=== PATIENT | female | born 1960 | race Caucasian/White ===

== ENCOUNTER 2017-05-08 18:29 | Emergency (ER) | payer OTHER, MEDICAID ==
[2017-05-08 18:33] VITALS: BP 91/72; BMI 30.4
[2017-05-08] MEDS ORDERED: ZOFRAN INJ 4 MG VIAL ONE (19:44)
[2017-05-08] MEDS ORDERED: LR 1000 ML IV 1,000 ML IV ONE ×2 (19:44→19:45)
--- NOTE | 2017-05-08 19:44 | DR.GENAD ---
HPI - Complaint/Symptoms Chief Complaint:: "throwing up three days and my stomach is hurting." - Source History Provided: Patient - Mode of Arrival Mode of Arrival: Ambulatory - Timing Onset of Chief Complaint: 05/05/17 PMH - PMH Past Medical History: Yes Past Medical History: Asthma, Hypertension Past Surgical History: Yes Surgical History: CLAIMS ADJUSTER Surgery - Family History History of Family Medical Conditions: Yes Family Medical History: Diabetes Mellitus, Cancer, Coronary Artery Disease, Hypertension - Social History Does patient currently use any type of tobacco product: No Have you used tobacco products in the last 12 months: No Type of Tobacco Use: None Does any household member use tobacco: No Alcohol Use: None Do you use any recreational Drugs:: No Lives With: Family Lives Where: Home - infectious screening In the last 2 months have you had wt loss of >10#?: NO Have you had fever, night sweats or hemotysis?: No Have you traveled outside the country in the last 6 months?: No Isolation: Standard PE - Vital Signs Vitals: Temperature 98 F Pulse Rate 100 Respiratory Rate 18 Blood Pressure [Right Arm] 134/77 Blood Pressure 91/72 O2 Sat by Pulse Oximetry 98 ROR - Labs Reviewed Result Diagrams: 05/08/17 19:51 05/08/17 19:51 Laboratory: WBC 14.8 X10^3/uL (3.6-10.0) H 05/08/17 19:51 RBC 4.48 X10^6/uL (3.5-5.4) 05/08/17 19:51 Hgb 13.9 g/dL (12.0-16.0) 05/08/17 19:51 Hct 39.4 % (36.0-47.0) 05/08/17 19:51 MCV 88.0 fL (80.0-100.0) 05/08/17 19:51 MCH 31.0 pg (27.0-34.0) 05/08/17 19:51 MCHC 35.2 g/dL (33.0-35.0) H 05/08/17 19:51 RDW 13.1 % (11.6-16.5) 05/08/17 19:51 Plt Count 232 X10^3/uL (150.0-450.0) 05/08/17 19:51 Plt Count Comment Adequate (ADEQUATE) 05/08/17 19:51 MPV 6.8 fL (7.4-11.0) L 05/08/17 19:51 Neut % 84.1 % (42.0-75.0) H 05/08/17 19:51 Lymph % 4.2 % (21.0-51.0) L 05/08/17 19:51 [place] % 11.4 % (0.0-13.0) 05/08/17 19:51 Eos % 0.1 % (0.9-2.9) L 05/08/17 19:51 Baso % 0.2 % (0.2-1.0) 05/08/17 19:51 Neut # 12.4 x10^3/uL (2.2-4.8) H 05/08/17 19:51 Lymph # 0.6 X10^3/uL (1.3-2.9) L 05/08/17 19:51 [place] # 1.7 x10^3/uL (0.3-0.8) H 05/08/17 19:51 Eos # 0.0 x10^3/uL (0.0-0.2) 05/08/17 19:51 Baso # 0.0 X10^3/uL (0.0-0.1) 05/08/17 19:51 Absolute Nucleated RBC 0.0 /100WBC 05/08/17 19:51 Total Counted 100 05/08/17 19:51 Neutrophils % (Manual) 84 % (39-76) H 05/08/17 19:51 Band Neutrophils % 3 % (0-10) 05/08/17 19:51 Lymphocytes % (Manual) 7 % (13-43) L 05/08/17 19:51 Monocytes % (Manual) 6 % (4-9) 05/08/17 19:51 Plt Morphology Comment Normal (NORMAL) 05/08/17 19:51 RBC Morphology Normal (NORMAL) 05/08/17 19:51 Sodium 135 mmol/L (136-145) L 05/08/17 19:51 Corrected Sodium 137 mmol/L (136-145) 05/08/17 19:51 Potassium 3.3 mmol/L (3.5-5.1) L 05/08/17 19:51 Chloride 100 mmol/L (98-107) 05/08/17 19:51 Carbon Dioxide 24.9 mmol/L (21-32) 05/08/17 19:51 BUN 9 mg/dL (7-18) 05/08/17 19:51 Creatinine 1.11 mg/dL (0.55-1.02) H 05/08/17 19:51 Est GFR (MDRD) Af Amer > 60 (>60) 05/08/17 19:51 Est GFR (MDRD) Non-Af 54 (>60) L 05/08/17 19:51 Glucose 168 mg/dL (65-99) H 05/08/17 19:51 Calcium 9.4 mg/dL (8.5-10.1) 05/08/17 19:51 Corrected Calcium 10.2 mg/dL (8.5-10.1) H 05/08/17 19:51 Total Bilirubin 1.20 mg/dL (0.2-1.0) H 05/08/17 19:51 AST 16 Units/L (15-37) 05/08/17 19:51 ALT 12 Units/L (12-78) 05/08/17 19:51 Alkaline Phosphatase 82 Units/L (46-116) 05/08/17 19:51 C-Reactive Protein 102.80 mg/L (0-3.0) H 05/08/17 19:51 Total Protein 8.0 g/dL (6.4-8.2) 05/08/17 19:51 Albumin 3.0 g/dL (3.4-5.0) L 05/08/17 19:51 Globulin 5.0 g/dL (2.5-4.5) H 05/08/17 19:51 Albumin/Globulin Ratio 0.6 Ratio (1.1-2.1) L 05/08/17 19:51 Specimen Type Clean catch urine 05/08/17 20:02 Urine Color Yellow (YELLOW) 05/08/17 20:02 Urine Appearance Cloudy (CLEAR) 05/08/17 20:02 Urine pH 8.0 (5.0 - 8.0) 05/08/17 20:02 Ur Specific [place] 1.010 (1.000-1.030) 05/08/17 20:02 Urine Protein 4+ (NEGATIVE) 05/08/17 20:02 Urine Glucose (UA) 1+ (NEGATIVE) 05/08/17 20:02 Urine Ketones 1+ (NEGATIVE) 05/08/17 20:02 Urine Occult Blood 3+ (NEGATIVE) 05/08/17 20:02 Urine Nitrite Positive (NEGATIVE) 05/08/17 20:02 Urine Bilirubin 1+ (NEGATIVE) 05/08/17 20:02 Urine Urobilinogen 3+ (NORMAL) 05/08/17 20:02 Ur Leukocyte Esterase 3+ (NEGATIVE) 05/08/17 20:02 Urine RBC 3-5 /HPF (NEGATIVE) 05/08/17 20:02 Urine WBC 20-25 /HPF (NEGATIVE) 05/08/17 20:02 Ur Squamous Epith Cells Moderate /HPF (NEGATIVE) 05/08/17 20:02 Urine Bacteria 3+ /HPF (NEGATIVE) 05/08/17 20:02 Ur Culture Indicated? Yes/culture set up 05/08/17 20:02 H. pylori IgG Antibody Positive (NEGATIVE) A 05/08/17 19:51 - Diagnosis Discharge Problem: UTI (urinary tract infection) Qualifiers: Urinary tract infection type: acute cystitis Hematuria presence: with hematuria Qualified Code(s): N30.01 - Acute cystitis with hematuria Gastritis Qualifiers: Gastritis type: other gastritis Chronicity: chronic Gastritis bleeding: without bleeding Qualified Code(s): K29.50 - Unspecified chronic gastritis without bleeding - Discharge Plan Condition: Stable Prescriptions: Amoxicillin [AMOXIL CAP 500 MG *] 500 mg PO BID 14 Days #56 cap Clarithromycin [CLARITHROMYCIN 500 MG TAB *] 500 mg PO Q12H #28 tab Lansoprazole [Lansoprazole 30 mg] 30 mg PO DAILY #30 cap - Follow ups/Referrals Follow ups/Referrals: NFD,None [Primary Care Provider] - 3 days - Instructions
[2017-05-08] MEDS ORDERED: ZOFRAN INJ 4 MG VIAL IVP ONE (19:45)
[2017-05-08 20:05] LABS: BASOPHILS % (AUTO) 0.2 % (0.2-1.0); EOSINOPHILS % (AUTO) 0.1 % (0.9-2.9); HEMATOCRIT 39.4 % (36.0-47.0); HEMOGLOBIN 13.9 g/dL (12.0-16.0); LYMPHOCYTES # (AUTO) 0.6 X10^3/uL (1.3-2.9); LYMPHOCYTES % (AUTO) 4.2 % (21.0-51.0); MEAN CORPUSCULAR HGB CONC 35.2 g/dL (33.0-35.0); MEAN PLATELET VOLUME 6.8 fL (7.4-11.0); MONOCYTES # (AUTO) 1.7 x10^3/uL (0.3-0.8); MONOCYTES % (AUTO) 11.4 % (0.0-13.0); NEUTROPHILS # (AUTO) 12.4 x10^3/uL (2.2-4.8); NEUTROPHILS % (AUTO) 84.1 % (42.0-75.0); PLATELET COUNT 232 X10^3/uL (150.0-450.0); RED BLOOD COUNT 4.48 X10^6/uL (3.5-5.4); RED CELL DISTRIBUTION WIDTH 13.1 % (11.6-16.5); WHITE BLOOD COUNT 14.8 X10^3/uL (3.6-10.0)
[2017-05-08 20:09] LABS: BILIRUBIN,URINE 1+ (NEGATIVE); BLOOD/HEMOGLOBIN,URINE 3+ (NEGATIVE); GLUCOSE, URINE 1+ (NEGATIVE); KETONES,URINE 1+ (NEGATIVE); LEUKOCYTE ESTERASE ,URINE 3+ (NEGATIVE); NITRITES,URINE POSITIVE (NEGATIVE); PROTEIN,URINE 4+ (NEGATIVE); UROBILINOGEN,URINE 3+ (NORMAL)
[2017-05-08 20:11] LABS: ALANINE AMINOTRANSFERASE 12 Units/L (12-78); ALKALINE PHOSPHATASE 82 Units/L (46-116); ASPARTATE AMINO TRANSFERASE 16 Units/L (15-37); BLOOD UREA NITROGEN 9 mg/dL (7-18); CALCIUM 9.4 mg/dL (8.5-10.1); CARBON DIOXIDE 24.9 mmol/L (21-32); CHLORIDE 100 mmol/L (98-107); COR CA(FOR HYPOALB) 10.2 mg/dL (8.5-10.1); COR NA(FOR HYPERGLY) 137 mmol/L (136-145); CREATININE 1.11 mg/dL (0.55-1.02); SODIUM 135 mmol/L (136-145); eGFR BLACK RACES > 60 (>60); eGFR NON BLACK RACES 54 (>60)
[2017-05-08 20:17] LABS: APPEARANCE,URINE CLOUDY (CLEAR); COLOR,URINE YELLOW (YELLOW)
[2017-05-08 20:18] LABS: BACTERIA,URINE 3+ /HPF (NEGATIVE); SQUAMOUS EPITHELIAL CELL,UR MODERATE /HPF (NEGATIVE)
[2017-05-08 20:27] LABS: BAND NEUTROPHILS % 3 % (0-10); PLATELET MORPHOLOGY COMMENT NORMAL (NORMAL)
[2017-05-08] MEDS ORDERED: K-DUR TAB 20 MEQ PO ONE ×2 (20:27→20:32)
[2017-05-08] MEDS ORDERED: AMPICILLIN IV ONE (21:35)
[2017-05-08] MEDS ORDERED: NS IV ONE (21:35)
[2017-05-08] MEDS ORDERED: AMPICILLIN VIAL 1 GM ONE (21:51)
[2017-05-08] MEDS ORDERED: NS 50 ML IV 50 ML IV ONE (21:51)
== END 2017-05-08 22:25 | disposition home or self-care (01) ==
LOC: ER 18:55
DX: N30.01 Acute cystitis with hematuria (principal); K29.50 Unspecified chronic gastritis without bleeding; B96.81 Helicobacter pylori [H. pylori] as the cause of diseases classified elsewhere; B96.1 Klebsiella pneumoniae [K. pneumoniae] as the cause of diseases classified elsewhere
CPT/HCPCS: 36415; 80053; 81001; 85025; 86140; 86677; 87086; 87088; 87186; 96365; 96374; 96375; 99283; A4222; J0290; J2405; J7120

== ENCOUNTER → 2017-06-26 | Outpatient (CLI) | payer OTHER, MEDICAID ==
[2017-06-26 11:53] LABS: BASOPHILS % (AUTO) 0.7 % (0.2-1.0); EOSINOPHILS # (AUTO) 0.1 x10^3/uL (0.0-0.2); EOSINOPHILS % (AUTO) 1.2 % (0.9-2.9); HEMATOCRIT 44.3 % (36.0-47.0); HEMOGLOBIN 15.3 g/dL (12.0-16.0); LYMPHOCYTES % (AUTO) 30.7 % (21.0-51.0); MEAN CORPUSCULAR HEMOGLOBIN 29.9 pg (27.0-34.0); MEAN CORPUSCULAR HGB CONC 34.5 g/dL (33.0-35.0); MEAN CORPUSCULAR VOLUME 86.7 fL (80.0-100.0); MEAN PLATELET VOLUME 7.2 fL (7.4-11.0); MONOCYTES # (AUTO) 0.4 x10^3/uL (0.3-0.8); MONOCYTES % (AUTO) 6.3 % (0.0-13.0); NEUTROPHILS % (AUTO) 61.1 % (42.0-75.0); PLATELET COUNT 262 X10^3/uL (150.0-450.0); RED BLOOD COUNT 5.11 X10^6/uL (3.5-5.4); WHITE BLOOD COUNT 6.5 X10^3/uL (3.6-10.0)
[2017-06-26 12:24] LABS: ALANINE AMINOTRANSFERASE 18 Units/L (12-78); ALBUMIN 3.6 g/dL (3.4-5.0); ALKALINE PHOSPHATASE 106 Units/L (46-116); ASPARTATE AMINO TRANSFERASE 13 Units/L (15-37); BLOOD UREA NITROGEN 14 mg/dL (7-18); CALCIUM 9.7 mg/dL (8.5-10.1); CARBON DIOXIDE 28.1 mmol/L (21-32); CHLORIDE 104 mmol/L (98-107); CREATININE 0.73 mg/dL (0.55-1.02); SODIUM 141 mmol/L (136-145); TOTAL PROTEIN 8.4 g/dL (6.4-8.2); TSH (3RD GENERATION) 1.835 uIU/mL (0.358-3.74); eGFR BLACK RACES > 60 (>60); eGFR NON BLACK RACES > 60 (>60)
== END ==
LOC: LAB 11:28
PROVIDERS: ATTEND Nurse Practitioner Family
DX: F25.0 Schizoaffective disorder, bipolar type (principal); Z79.899 Other long term (current) drug therapy
CPT/HCPCS: 36415; 80053; 84443; 85025

== ENCOUNTER 2017-09-05 14:25 | Inpatient (IN) | payer OTHER, MEDICAID ==
[~2017-09-05 14:25] MED LIST: DIPRIVAN VIAL ONE; LTA KIT LIDOCAINE 4% ONE; NEOSTIGMINE INJ ONE; NORCURON INJ 10 MG VIAL ONE; QUELICIN (OR ANECTINE) ONE; ROBINUL ONE; SUPRANE IN ONE; VERSED ONE; XYLOCAINE 2 % (PLAIN) ONE; ZOFRAN INJ 4 MG VIAL ONE
--- NOTE | 2017-09-05 15:27 | DR.GENAD ---
HPI - PCP Primary Care Physician: Allen - HPI Comment HPI Comment: PAIN UPPER ABDOMEN RADIATING TO THE BACK. NO FEVER OR DYSURIA. - Complaint/Symptoms Chief Complaint Doctors Comments: ABDOMINAL PAIN TIMES 2 DAYS. PATIENT CONCERN SHE MAY BE CONSTIPATED. Chief Complaint:: "My stomach has been hurting for about 2 days now. I feel like it may be constipation. I had a bowl movement today but it was really small." - Nurses notes reviewed Nurses Notes Review: Yes - Source History Provided: Patient - Mode of Arrival Mode of Arrival: Ambulatory - Timing Onset of Chief Complaint: 09/03/17 Came on: Suddenly - Duration Duration: Constant Duration: Days - Severity Severity: Moderate PMH - PMH Past Medical History: Yes Past Medical History: Asthma, Hypertension Past Surgical History: Yes Surgical History: CHILDHOOD TEACHER Surgery - Family History History of Family Medical Conditions: Yes Family Medical History: Diabetes Mellitus, Cancer, Coronary Artery Disease, Hypertension - Social History Does patient currently use any type of tobacco product: No Have you used tobacco products in the last 12 months: No Type of Tobacco Use: None Does any household member use tobacco: No Do you use any recreational Drugs:: No Lives With: Family Lives Where: Home - infectious screening In the last 2 months have you had wt loss of >10#?: NO Have you had fever, night sweats or hemotysis?: No Have you traveled outside the country in the last 6 months?: No Isolation: Standard ROS - Review of Systems Constitutional: Weakness, Fatigue. negative: Chills, Fever Eyes: negative: Eye Pain, Discharge ENTM: negative: Ear Pain, Nose Discharge, Nose Congestion, Throat Pain Respiratoy: Short of Breath. negative: Productive Cough, Non-Productive Cough, Wheezing, Hemoptysis Cardiovascular: No Symptoms Reported Gastrointestinal/Abdominal: Abdominal Pain, Constipation, Nausea, Vomiting. negative: Diarrhea Genitourinary: Pain. negative: Dysuria, Frequency, Hematuria Neurological: Weakness, Dizziness. negative: Headache Musculoskeletal: Muscle Pain Integumentary: [place] Hematologic/Lymphatic: No Symptoms Reported Endocrine: No Symptoms Reported All Other Systems: Reviewed and Negative PE - Vital Signs Vitals: Temperature 99.7 F Pulse Rate 115 Respiratory Rate 18 Blood Pressure [Right Arm] 134/77 Blood Pressure 137/91 O2 Sat by Pulse Oximetry 96 - General Limitations: No Limitations General Appearance: Alert - Head Head Exam: Normal Inspection - Eyes Eye exam: Other (JAUNDICE) - ENT ENT Exam: Normal External Ear Exam External Ear Exam: Normal External Inspection TM/Canal Exam: Bilateral Normal Nose Exam: Normal Nose Exam Mouth Exam: Normal Inspection Throat Exam: Normal Inspection - Neck Neck Exam: Normal Inspection - Chest Chest Inspection: Symmetric Chest Wall Rise - Respiratory Respiratory Exam: Normal Lung Sounds Bilat Respiratory Exam: Bilateral Clear to Auscultation - Cardiovascular Cardiovascular Exam: Regular Rate, Normal Rhythm, Normal Heart Sounds - Abdominal Exam Abdominal Exam: Normal Bowel Sounds, Soft, Tenderness Abdominal Tenderness: RUQ, LUQ, Epigastrium, Moderate - Extremities Extremities Exam: Normal Inspection - Back Back Exam: Normal Inspection - Neurologic Neurological Exam: Alert, Oriented X3 - Psychiatric Psychiatric Exam: Normal Affect, Normal Mood - Skin Skin Exam: Normal Color MDM - Additional Information Additional Information Obtained From: Family - Differential Diagnosis Differential Diagnosis: ABDOMINAL PAIN, BOWEL OBSTRUCTION, CHOLECYSTITIS, PACREATITIS, JAUNDICE Course - Treatment Treatment: SEE ORDERS. - Education/Counseling Education/Counseling: Patient, Family, Education Educated On: Diagnosis, Needs for Follow Up ROR - Labs Reviewed Laboratory Results Reviewed?: Yes Result Diagrams: 09/06/17 06:20 09/06/17 06:20 Laboratory: WBC 9.2 X10^3/uL (3.6-10.0) 09/05/17 15:38 RBC 5.37 X10^6/uL (3.5-5.4) 09/05/17 15:38 Hgb 16.1 g/dL (12.0-16.0) H 09/05/17 15:38 Hct 46.1 % (36.0-47.0) 09/05/17 15:38 MCV 85.8 fL (80.0-100.0) 09/05/17 15:38 MCH 30.0 pg (27.0-34.0) 09/05/17 15:38 MCHC 35.0 g/dL (33.0-35.0) 09/05/17 15:38 RDW 14.8 % (11.6-16.5) 09/05/17 15:38 Plt Count 216 X10^3/uL (150.0-450.0) 09/05/17 15:38 MPV 7.6 fL (7.4-11.0) 09/05/17 15:38 Neut % 89.3 % (42.0-75.0) H 09/05/17 15:38 Lymph % 6.1 % (21.0-51.0) L 09/05/17 15:38 [place] % 4.1 % (0.0-13.0) 09/05/17 15:38 Eos % 0.2 % (0.9-2.9) L 09/05/17 15:38 Baso % 0.3 % (0.2-1.0) 09/05/17 15:38 Neut # 8.2 x10^3/uL (2.2-4.8) H 09/05/17 15:38 Lymph # 0.6 X10^3/uL (1.3-2.9) L 09/05/17 15:38 [place] # 0.4 x10^3/uL (0.3-0.8) 09/05/17 15:38 Eos # 0.0 x10^3/uL (0.0-0.2) 09/05/17 15:38 Baso # 0.0 X10^3/uL (0.0-0.1) 09/05/17 15:38 Absolute Nucleated RBC 0.0 /100WBC 09/05/17 15:38 Sodium 135 mmol/L (136-145) L 09/05/17 15:38 Corrected Sodium 136 mmol/L (136-145) 09/05/17 15:38 Potassium 4.0 mmol/L (3.5-5.1) 09/05/17 15:38 Chloride 100 mmol/L (98-107) 09/05/17 15:38 Carbon Dioxide 24.2 mmol/L (21-32) 09/05/17 15:38 BUN 13 mg/dL (7-18) 09/05/17 15:38 Creatinine 0.89 mg/dL (0.55-1.02) 09/05/17 15:38 Est GFR (MDRD) Af Amer > 60 (>60) 09/05/17 15:38 Est GFR (MDRD) Non-Af > 60 (>60) 09/05/17 15:38 Glucose 127 mg/dL (65-99) H 09/05/17 15:38 Calcium 10.2 mg/dL (8.5-10.1) H 09/05/17 15:38 Corrected Calcium TNP 09/05/17 15:38 Total Bilirubin 6.80 mg/dL (0.2-1.0) H 09/05/17 15:38 AST 214 Units/L (15-37) H 09/05/17 15:38 ALT 297 Units/L (12-78) H 09/05/17 15:38 Alkaline Phosphatase 310 Units/L (46-116) H 09/05/17 15:38 Total Protein 8.5 g/dL (6.4-8.2) H 09/05/17 15:38 Albumin 3.6 g/dL (3.4-5.0) 09/05/17 15:38 Globulin 4.9 g/dL (2.5-4.5) H 09/05/17 15:38 Albumin/Globulin Ratio 0.7 Ratio (1.1-2.1) L 09/05/17 15:38 Amylase 2191 Units/L (25-115) H 09/05/17 15:38 Lipase 80754 Units/L (73-393) H 09/05/17 15:38 Specimen Type Clean catch urine 09/05/17 16:19 Urine Color [place] (YELLOW) 09/05/17 16:19 Urine Appearance Slightly hazy (CLEAR) 09/05/17 16:19 Urine pH Cancelled 09/05/17 15:53 Ur Specific [place] Cancelled 09/05/17 15:53 Urine Protein Cancelled 09/05/17 15:53 Urine Glucose (UA) Cancelled 09/05/17 15:53 Urine Ketones Cancelled 09/05/17 15:53 Urine Occult Blood Cancelled 09/05/17 15:53 Urine Nitrite Cancelled 09/05/17 15:53 Urine Bilirubin Cancelled 09/05/17 15:53 Urine Urobilinogen Cancelled 09/05/17 15:53 Ur Leukocyte Esterase Cancelled 09/05/17 15:53 Urine RBC 5-10 /HPF (NONE SEEN) 09/05/17 16:19 Urine WBC 0-2 /HPF (NONE SEEN) 09/05/17 16:19 Ur Squamous Epith Cells Moderate /HPF (NEGATIVE) 09/05/17 16:19 Ur Transition Epith Cell Cancelled 09/05/17 15:53 Ur Renal Epithelial Cell Cancelled 09/05/17 15:53 Calcium Oxalate Crystal Cancelled 09/05/17 15:53 Cystine Crystals Cancelled 09/05/17 15:53 Uric Acid Crystals Cancelled 09/05/17 15:53 Triple Phos Crystals Cancelled 09/05/17 15:53 Tyrosine Crystals Cancelled 09/05/17 15:53 Other Crystals Cancelled 09/05/17 15:53 Amorphous Sediment Cancelled 09/05/17 15:53 Urine Bacteria 3+ /HPF (Negative) 09/05/17 16:19 Hyaline Casts Cancelled 09/05/17 15:53 Granular Casts Cancelled 09/05/17 15:53 Fine Granular Casts Cancelled 09/05/17 15:53 Coarse Granular Casts Cancelled 09/05/17 15:53 WBC Casts Cancelled 09/05/17 15:53 Other Casts Cancelled 09/05/17 15:53 Urine Mucus Cancelled 09/05/17 15:53 Urine Trichomonas Cancelled 09/05/17 15:53 Urine Yeast Cancelled 09/05/17 15:53 Urine Sperm Cancelled 09/05/17 15:53 Ur Culture Indicated? Yes/culture set up 09/05/17 16:19 Micro UA Comment Unable to perform (-) 09/05/17 16:19 H. pylori IgG Antibody Positive (NEGATIVE) A 09/05/17 15:38 - XRAY XRAY Interpreted by: Radiologist XRAY Findings: REPORT DISCUSS WITH PATIENT. - Diagnosis Discharge Problem: Hyponatremia, Hypokalemia Abdominal pain Qualifiers: Abdominal location: upper abdomen, unspecified Qualified Code(s): R10.10 - Upper abdominal pain, unspecified Acute pancreatitis Qualifiers: Pancreatitis type: unspecified pancreatitis type Acute pancreatitis complication: unspecified Qualified Code(s): K85.90 - Acute pancreatitis without necrosis or infection, unspecified - Discharge Plan Disposition: ADMITTED INPATIENT Condition: Stable - Follow ups/Referrals - Instructions
[2017-09-05 15:51] LABS: BASOPHILS % (AUTO) 0.3 % (0.2-1.0); EOSINOPHILS % (AUTO) 0.2 % (0.9-2.9); HEMATOCRIT 46.1 % (36.0-47.0); HEMOGLOBIN 16.1 g/dL (12.0-16.0); LYMPHOCYTES # (AUTO) 0.6 X10^3/uL (1.3-2.9); LYMPHOCYTES % (AUTO) 6.1 % (21.0-51.0); MEAN CORPUSCULAR VOLUME 85.8 fL (80.0-100.0); MEAN PLATELET VOLUME 7.6 fL (7.4-11.0); MONOCYTES # (AUTO) 0.4 x10^3/uL (0.3-0.8); MONOCYTES % (AUTO) 4.1 % (0.0-13.0); NEUTROPHILS # (AUTO) 8.2 x10^3/uL (2.2-4.8); NEUTROPHILS % (AUTO) 89.3 % (42.0-75.0); PLATELET COUNT 216 X10^3/uL (150.0-450.0); RED BLOOD COUNT 5.37 X10^6/uL (3.5-5.4); RED CELL DISTRIBUTION WIDTH 14.8 % (11.6-16.5); WHITE BLOOD COUNT 9.2 X10^3/uL (3.6-10.0)
[2017-09-05 15:59] LABS: ALANINE AMINOTRANSFERASE 297 Units/L (12-78); ALBUMIN 3.6 g/dL (3.4-5.0); ALKALINE PHOSPHATASE 310 Units/L (46-116); ASPARTATE AMINO TRANSFERASE 214 Units/L (15-37); BLOOD UREA NITROGEN 13 mg/dL (7-18); CALCIUM 10.2 mg/dL (8.5-10.1); CARBON DIOXIDE 24.2 mmol/L (21-32); CHLORIDE 100 mmol/L (98-107); COR NA(FOR HYPERGLY) 136 mmol/L (136-145); CREATININE 0.89 mg/dL (0.55-1.02); SODIUM 135 mmol/L (136-145); TOTAL PROTEIN 8.5 g/dL (6.4-8.2); eGFR BLACK RACES > 60 (>60); eGFR NON BLACK RACES > 60 (>60)
--- NOTE | 2017-09-05 16:21 | RAD ---
HISTORY: Abdominal pain Study: Acute abdominal series Comparison: None Technique: A single view of the chest and two views of the abdomen are submitted for interpretation. Findings: A single view of the chest demonstrates the cardiac silhouette within normal limits in size. Elevatio n of the right hemidiaphragm is noted. Otherwise no evidence of focal consolidation is appreciated. Two views of the abdomen demonstrate a nonspecific bowel gas pattern. Scattered gas and a large amoun t of stool are seen within the colon. The renal shadows are partially obscured by overlying bowel con tent. Stool and gas are seen to the level of the rectum. IMPRESSION: No evidence of acute cardiopulmonary disease is appreciated. Overall nonspecific bowel gas pattern with findings suggesting constipation. Correlate clinically. Reported By:
[2017-09-05 16:23] LABS: AMYLASE 2191 Units/L (25-115)
[2017-09-05 16:24] LABS: LIPASE 16700 Units/L (73-393)
[2017-09-05 16:30] LABS: APPEARANCE,URINE SLIGHTLY HAZY (CLEAR); BACTERIA,URINE 3+ /HPF (Negative); COLOR,URINE ORANGE (YELLOW); SQUAMOUS EPITHELIAL CELL,UR MODERATE /HPF (NEGATIVE)
[2017-09-05] MEDS ORDERED: NS 1000 ML 1,000 ML ONE (16:34)
[2017-09-05] MEDS ORDERED: NS 1000 ML 1,000 ML IV SCH (17:00)
--- NOTE | 2017-09-05 17:29 | CT ---
HISTORY: Right-sided abdominal pain. Study: CT abdomen and pelvis without contrast Comparison: CT abdomen/pelvis dated August 13, 2012. Technique: Multiple axial images of the abdomen and pelvis were obtained from the lung bases to the pubic symphy sis without the administration of IV contrast. Dose reduction techniques including Automated Exposur e Control (AEC) and adjustment of mA and kV were utilized. Findings: Limited study secondary to lack of IV and oral contrast. The visualized portions of the lung bases are unremarkable. 1.2 cm right adrenal gland nodule with in ternal Hounsfield units of 6 appears unchanged. This is consistent with a benign adenoma. The liver, spleen, pancreas, kidneys, and left adrenal gland are unremarkable in their CT appearance. The gallbl adder is unremarkable in its CT appearance. No significant mesenteric lymphadenopathy or stranding c an be observed. No free fluid or free air is seen within the abdomen. Limited evaluation of the lar ge and small bowel secondary to collapse and lack of oral contrast. The large and small bowel are oth erwise unremarkable. The appendix appears normal. The uterus and ovaries appear normal for age. The u rinary bladder is grossly unremarkable. Multilevel degenerative changes of the spine. No aggressive o sseous lesions. IMPRESSION: No CT evidence of acute abdominal/pelvic pathology. Reported By:
[2017-09-05] MEDS ORDERED: FLUVIRIN IM ONE (18:16)
[2017-09-05] MEDS: NS 1000 ML 1,000 ML IV SCH (18:24)
[2017-09-05] MEDS ORDERED: BUTT CREAM (COMPOUND) TOP PRN (18:27)
[2017-09-05] MEDS: MORPHINE SULFATE INJ 2 MG INJ IVP PRN (19:36)
[2017-09-05] MEDS: ZOFRAN INJ 4 MG VIAL IVP PRN (19:38)
[2017-09-06] MEDS: NS 1000 ML 1,000 ML IV SCH ×5 (02:40→21:38)
[2017-09-06 06:34] LABS: BASOPHILS % (AUTO) 0.4 % (0.2-1.0); EOSINOPHILS % (AUTO) 0.5 % (0.9-2.9); HEMATOCRIT 39.5 % (36.0-47.0); HEMOGLOBIN 13.7 g/dL (12.0-16.0); LYMPHOCYTES # (AUTO) 0.6 X10^3/uL (1.3-2.9); LYMPHOCYTES % (AUTO) 11.5 % (21.0-51.0); MEAN CORPUSCULAR HEMOGLOBIN 30.1 pg (27.0-34.0); MEAN CORPUSCULAR HGB CONC 34.7 g/dL (33.0-35.0); MEAN CORPUSCULAR VOLUME 86.6 fL (80.0-100.0); MEAN PLATELET VOLUME 7.6 fL (7.4-11.0); MONOCYTES # (AUTO) 0.4 x10^3/uL (0.3-0.8); MONOCYTES % (AUTO) 6.4 % (0.0-13.0); NEUTROPHILS # (AUTO) 4.5 x10^3/uL (2.2-4.8); NEUTROPHILS % (AUTO) 81.2 % (42.0-75.0); PLATELET COUNT 166 X10^3/uL (150.0-450.0); RED BLOOD COUNT 4.56 X10^6/uL (3.5-5.4); RED CELL DISTRIBUTION WIDTH 15.3 % (11.6-16.5); WHITE BLOOD COUNT 5.5 X10^3/uL (3.6-10.0)
[2017-09-06 06:57] LABS: ALANINE AMINOTRANSFERASE 236 Units/L (12-78); ALBUMIN 2.9 g/dL (3.4-5.0); ALKALINE PHOSPHATASE 294 Units/L (46-116); ASPARTATE AMINO TRANSFERASE 150 Units/L (15-37); BLOOD UREA NITROGEN 15 mg/dL (7-18); CALCIUM 9.4 mg/dL (8.5-10.1); CARBON DIOXIDE 22.6 mmol/L (21-32); CHLORIDE 105 mmol/L (98-107); COR CA(FOR HYPOALB) 10.3 mg/dL (8.5-10.1); COR NA(FOR HYPERGLY) 138 mmol/L (136-145); CREATININE 0.67 mg/dL (0.55-1.02); SODIUM 138 mmol/L (136-145); TOTAL PROTEIN 7.2 g/dL (6.4-8.2); eGFR BLACK RACES > 60 (>60); eGFR NON BLACK RACES > 60 (>60)
[2017-09-06 07:19] LABS: AMYLASE 1250 Units/L (25-115)
[2017-09-06 07:20] LABS: LIPASE 6354 Units/L (73-393)
--- NOTE | 2017-09-06 08:13 | PCM.PROG ---
Progress Note - Progress Note for Day of Date: 09/06/17 - Subjective Subjective: still having upper abdominal pain with mild nausea , no vomiting . amylase ,lipase and bilirubin are still high . abdominal CT normal. - Past Medical Family Social History Past Med/Fam/Surg Hx: No changes since H&P Allergies: Allergies aspirin Allergy (Verified 05/08/17 19:17) - Review of Systems ROS: No change since H&P - Vital Signs and I&O's Vital Signs: Temperature 97.7 F Pulse Rate [Left Brachial] 85 Pulse Rate [Left] 100 Pulse Rate 115 Respiratory Rate 18 Blood Pressure [Left Arm] 120/71 Blood Pressure [Right Arm] 134/77 Blood Pressure 137/91 O2 Sat by Pulse Oximetry 97 Intake and Output: Intake & Output 09/03/17 09/04/17 09/05/17 09/06/17 11:59 11:59 11:59 11:59 Intake Total 1300 Balance 1300 - Physical Exam Oriented: Normal Eyes: Other (jundice ) Nose: Normal Throat: Normal Respiratory: Normal Cardiovascular: Normal Auscultation: Bowel Sounds: Decreased Tenderness: RUQ, Epigastric Skin: Normal Musculoskeletal: Normal Psychiatric: Normal Speech Pattern: Clear, Appropriate - Laboratory and Diagnostics Result Diagrams: 09/06/17 06:20 09/06/17 06:20 Labs: Laboratory WBC 5.5 X10^3/uL (3.6-10.0) 09/06/17 06:20 RBC 4.56 X10^6/uL (3.5-5.4) 09/06/17 06:20 Hgb 13.7 g/dL (12.0-16.0) D 09/06/17 06:20 Hct 39.5 % (36.0-47.0) 09/06/17 06:20 MCV 86.6 fL (80.0-100.0) 09/06/17 06:20 MCH 30.1 pg (27.0-34.0) 09/06/17 06:20 MCHC 34.7 g/dL (33.0-35.0) 09/06/17 06:20 RDW 15.3 % (11.6-16.5) 09/06/17 06:20 Plt Count 166 X10^3/uL (150.0-450.0) 09/06/17 06:20 MPV 7.6 fL (7.4-11.0) 09/06/17 06:20 Neut % 81.2 % (42.0-75.0) H 09/06/17 06:20 Lymph % 11.5 % (21.0-51.0) L 09/06/17 06:20 [place] % 6.4 % (0.0-13.0) 09/06/17 06:20 Eos % 0.5 % (0.9-2.9) L 09/06/17 06:20 Baso % 0.4 % (0.2-1.0) 09/06/17 06:20 Neut # 4.5 x10^3/uL (2.2-4.8) 09/06/17 06:20 Lymph # 0.6 X10^3/uL (1.3-2.9) L 09/06/17 06:20 [place] # 0.4 x10^3/uL (0.3-0.8) 09/06/17 06:20 Eos # 0.0 x10^3/uL (0.0-0.2) 09/06/17 06:20 Baso # 0.0 X10^3/uL (0.0-0.1) 09/06/17 06:20 Absolute Nucleated RBC 0.0 /100WBC 09/06/17 06:20 Sodium 138 mmol/L (136-145) 09/06/17 06:20 Corrected Sodium 138 mmol/L (136-145) 09/06/17 06:20 Potassium 4.2 mmol/L (3.5-5.1) 09/06/17 06:20 Chloride 105 mmol/L (98-107) 09/06/17 06:20 Carbon Dioxide 22.6 mmol/L (21-32) 09/06/17 06:20 BUN 15 mg/dL (7-18) 09/06/17 06:20 Creatinine 0.67 mg/dL (0.55-1.02) 09/06/17 06:20 Est GFR (MDRD) Af Amer > 60 (>60) 09/06/17 06:20 Est GFR (MDRD) Non-Af > 60 (>60) 09/06/17 06:20 Glucose 114 mg/dL (65-99) H 09/06/17 06:20 Calcium 9.4 mg/dL (8.5-10.1) 09/06/17 06:20 Corrected Calcium 10.3 mg/dL (8.5-10.1) H 09/06/17 06:20 Total Bilirubin 6.70 mg/dL (0.2-1.0) H 09/06/17 06:20 AST 150 Units/L (15-37) H 09/06/17 06:20 ALT 236 Units/L (12-78) H 09/06/17 06:20 Alkaline Phosphatase 294 Units/L (46-116) H 09/06/17 06:20 Total Protein 7.2 g/dL (6.4-8.2) 09/06/17 06:20 Albumin 2.9 g/dL (3.4-5.0) L 09/06/17 06:20 Globulin 4.3 g/dL (2.5-4.5) 09/06/17 06:20 Albumin/Globulin Ratio 0.7 Ratio (1.1-2.1) L 09/06/17 06:20 Amylase 1250 Units/L (25-115) H 09/06/17 06:20 Lipase 6354 Units/L (73-393) H 09/06/17 06:20 Specimen Type Clean catch urine 09/05/17 16:19 Urine Color [place] (YELLOW) 09/05/17 16:19 Urine Appearance Slightly hazy (CLEAR) 09/05/17 16:19 Urine pH Cancelled 09/05/17 15:53 Ur Specific [place] Cancelled 09/05/17 15:53 Urine Protein Cancelled 09/05/17 15:53 Urine Glucose (UA) Cancelled 09/05/17 15:53 Urine Ketones Cancelled 09/05/17 15:53 Urine Occult Blood Cancelled 09/05/17 15:53 Urine Nitrite Cancelled 09/05/17 15:53 Urine Bilirubin Cancelled 09/05/17 15:53 Urine Urobilinogen Cancelled 09/05/17 15:53 Ur Leukocyte Esterase Cancelled 09/05/17 15:53 Urine RBC 5-10 /HPF (NONE SEEN) 09/05/17 16:19 Urine WBC 0-2 /HPF (NONE SEEN) 09/05/17 16:19 Ur Squamous Epith Cells Moderate /HPF (NEGATIVE) 09/05/17 16:19 Ur Transition Epith Cell Cancelled 09/05/17 15:53 Ur Renal Epithelial Cell Cancelled 09/05/17 15:53 Calcium Oxalate Crystal Cancelled 09/05/17 15:53 Cystine Crystals Cancelled 09/05/17 15:53 Uric Acid Crystals Cancelled 09/05/17 15:53 Triple Phos Crystals Cancelled 09/05/17 15:53 Tyrosine Crystals Cancelled 09/05/17 15:53 Other Crystals Cancelled 09/05/17 15:53 Amorphous Sediment Cancelled 09/05/17 15:53 Urine Bacteria 3+ /HPF (Negative) 09/05/17 16:19 Hyaline Casts Cancelled 09/05/17 15:53 Granular Casts Cancelled 09/05/17 15:53 Fine Granular Casts Cancelled 09/05/17 15:53 Coarse Granular Casts Cancelled 09/05/17 15:53 WBC Casts Cancelled 09/05/17 15:53 Other Casts Cancelled 09/05/17 15:53 Urine Mucus Cancelled 09/05/17 15:53 Urine Trichomonas Cancelled 09/05/17 15:53 Urine Yeast Cancelled 09/05/17 15:53 Urine Sperm Cancelled 09/05/17 15:53 Ur Culture Indicated? Yes/culture set up 09/05/17 16:19 Micro UA Comment Unable to perform (-) 09/05/17 16:19 H. pylori IgG Antibody Positive (NEGATIVE) A 09/05/17 15:38 - Plan (1) Acute pancreatitis Status: Acute Plan: treatment for the pancreatitis with IVF ,hydration ,Protonix and ATB. GB US today . if having gallstone then will need Lap Melinda after the pancreatitis subsides,
[2017-09-06] MEDS ORDERED: HALDOL PO ONE (08:52)
--- NOTE | 2017-09-06 10:12 | US ---
HISTORY: Abdominal pain, pancreatitis, jaundice Study: Right upper quadrant abdominal ultrasound Comparison: CT abdomen and pelvis without contrast 09/05/2017 Technique: Multiple cheema scale and color flow Doppler images of the right upper quadrant were obtaine d. Findings: The liver is normal in size and echotexture without visualized focal lesion. The gallbladder is mildl y distended and contains moderate sludge as well as multiple tiny echogenic gallstones. There is no s ignificant gallbladder wall edema, wall thickening or pericholecystic fluid. The common bile duct is normal in caliber, measuring 3 mm. The right kidney measures 10.5 x 5.8 x 5.6 cm and contains a 2 cm simple appearing cyst. The right ki dney is otherwise normal in echogenicity and contour without nephrolithiasis or hydronephrosis. The visualized pancreas is mildly prominent and echogenic. IMPRESSION: Prominence and increased echogenicity of the visualized pancreas, suggestive for edema from acute he creatitis. Correlation with amylase and lipase levels recommended. Moderate biliary sludge and cholelithiasis without additional sonographic evidence of acute cholecyst itis. Reported By:
[2017-09-06] MEDS: MORPHINE SULFATE INJ 2 MG INJ IVP PRN (12:10)
--- NOTE | 2017-09-06 15:14 | DR.H&P ---
H&P - History & Physical for Day of: H&P Date: 09/05/17 - Chief Complaint Chief Complaint: ABDOMINAL PAIN, N/V - Allergies Allergies/Adverse Reactions: Allergies Allergy/AdvReac Type Severity Reaction Status Date / Time aspirin Allergy Verified 05/08/17 19:17 - History of Present Illness History of Present Illness: 57 WF ER ADMITTED WITH CO ABDOMINAL PAIN N/V. PT HAD ABNORMAL LABS, ELEVATED LFTS AND AMYLASE AND LIPASE IN ED. PT HAS ACUTE CHOLECYSTITIS WITH CHOLELITHIASIS AND PANCREATITIS. PT ADMITTED FOR PAIN CONTROL , IV ATBX, SURGICAL CONSULT - Past Medical History Past Medical History: Asthma, Hypertension - Past Surgical History Surgical History: EMERGENCY ROOM SPECIALIST Surgery - Family History Family Medical History: Diabetes Mellitus, Cancer, Coronary Artery Disease, Hypertension - Social History Does patient currently use any type of tobacco product: No Have you used tobacco products in the last 12 months: No Type of Tobacco Use: None Does any household member use tobacco: No Alcohol Use: None Drug Use: None - Medications Home Medications: Benztropine Mesylate [COGENTIN 1 MG TAB *] 1 tab PO BID 09/05/17 [History Confirmed 09/05/17] Divalproex Sodium [DEPAKOTE DR TAB 500 MG Generic *] 1 tab PO BID 09/05/17 [ History Confirmed 09/05/17] Haloperidol [Haldol tab 5 mg] 0.5 tab PO DAILY 09/05/17 [History Confirmed 09/05] Haloperidol [Haldol tab 5 mg] 1 tab PO HS 09/05/17 [History Confirmed 09/05/17] Misc Home Med [Patient's Home Medication] 1 tab PO DAILY 09/05/17 [History Confirmed 09/05/17] - Review of Systems Constitutional: Chills, Weakness Eyes: No Symptoms Reported ENT: No Symptoms Reported Respiratory: No Symptoms Reported Cardiovascular: No Symptoms Reported Gastrointestinal: Nausea, Vomiting, Abdominal Pain Genitourinary: Frequency Musculoskeletal: No Symptoms Reported Skin: No Symptoms Reported Neurological: No Symptoms Reported - Physical Exam Vital Signs: Temperature 97.4 F Pulse Rate [Left Brachial] 95 Pulse Rate [Left] 100 Pulse Rate 115 Respiratory Rate 18 Blood Pressure [Left Arm] 102/69 Blood Pressure [Right Arm] 134/77 Blood Pressure 137/91 O2 Sat by Pulse Oximetry 94 Oriented: Normal Eyes: Normal Ear: Normal Nose: Normal Throat: Normal Respiratory: Clear Throughout Cardiovascular: Normal : Normal Auscultation: Bowel Sounds: Normal Palpation: Normal Tenderness: RUQ, Epigastric Skin: Normal Musculoskeletal: Back:Thoracic Psychiatric: Anxiety Affect: Anxious Speech Pattern: Clear, Appropriate - Assessment/Plan (1) Abdominal pain Qualifiers: Abdominal location: upper abdomen, unspecified Qualified Code(s): R10.10 - Upper abdominal pain, unspecified Status: Acute Plan: ADMIT, PAIN AND NAUSEA CONTROL. GB US, IV ATBX. REPEAT AM LABS,. RESUME HOME PSYCH MEDICAITON, SURGICAL CONSULT. EKG AND CXR ON ADMISSION (2) Acute cholecystitis Status: Acute (3) Acute pancreatitis Qualifiers: Pancreatitis type: unspecified pancreatitis type Acute pancreatitis complication: unspecified Qualified Code(s): K85.90 - Acute pancreatitis without necrosis or infection, unspecified Status: Acute
--- NOTE | 2017-09-06 15:16 | PCM.PROG ---
Progress Note - Progress Note for Day of Date: 09/06/17 - Subjective Subjective: still having upper abdominal pain with mild nausea , no vomiting . amylase ,lipase and bilirubin are still high, slight improvement since admission. abdominal CT normal, npo for gb us this am - Past Medical Family Social History Past Med/Fam/Surg Hx: No changes since H&P Allergies: Allergies aspirin Allergy (Verified 05/08/17 19:17) - Review of Systems ROS: No change since H&P - Vital Signs and I&O's Vital Signs: Temperature 97.4 F Pulse Rate [Left Brachial] 95 Pulse Rate [Left] 100 Pulse Rate 115 Respiratory Rate 18 Blood Pressure [Left Arm] 102/69 Blood Pressure [Right Arm] 134/77 Blood Pressure 137/91 O2 Sat by Pulse Oximetry 94 Intake and Output: Intake & Output 09/04/17 09/05/17 09/06/17 09/07/17 11:59 11:59 11:59 11:59 Intake Total 1300 600 Balance 1300 600 - Physical Exam Oriented: Normal Eyes: Normal Ear: Normal Nose: Normal Throat: Normal Respiratory: Normal Cardiovascular: Normal : Normal Auscultation: Bowel Sounds: Normal Tenderness: RUQ, Epigastric Skin: Normal Musculoskeletal: Back:Thoracic Psychiatric: Anxiety Affect: Anxious Speech Pattern: Clear, Appropriate - Laboratory and Diagnostics Result Diagrams: 09/06/17 06:20 09/06/17 06:20 Labs: 09/05/17 16:19 Urine,Clean Catch Urine Culture - Preliminary Laboratory WBC 5.5 X10^3/uL (3.6-10.0) 09/06/17 06:20 RBC 4.56 X10^6/uL (3.5-5.4) 09/06/17 06:20 Hgb 13.7 g/dL (12.0-16.0) D 09/06/17 06:20 Hct 39.5 % (36.0-47.0) 09/06/17 06:20 MCV 86.6 fL (80.0-100.0) 09/06/17 06:20 MCH 30.1 pg (27.0-34.0) 09/06/17 06:20 MCHC 34.7 g/dL (33.0-35.0) 09/06/17 06:20 RDW 15.3 % (11.6-16.5) 09/06/17 06:20 Plt Count 166 X10^3/uL (150.0-450.0) 09/06/17 06:20 MPV 7.6 fL (7.4-11.0) 09/06/17 06:20 Neut % 81.2 % (42.0-75.0) H 09/06/17 06:20 Lymph % 11.5 % (21.0-51.0) L 09/06/17 06:20 [place] % 6.4 % (0.0-13.0) 09/06/17 06:20 Eos % 0.5 % (0.9-2.9) L 09/06/17 06:20 Baso % 0.4 % (0.2-1.0) 09/06/17 06:20 Neut # 4.5 x10^3/uL (2.2-4.8) 09/06/17 06:20 Lymph # 0.6 X10^3/uL (1.3-2.9) L 09/06/17 06:20 [place] # 0.4 x10^3/uL (0.3-0.8) 09/06/17 06:20 Eos # 0.0 x10^3/uL (0.0-0.2) 09/06/17 06:20 Baso # 0.0 X10^3/uL (0.0-0.1) 09/06/17 06:20 Absolute Nucleated RBC 0.0 /100WBC 09/06/17 06:20 Sodium 138 mmol/L (136-145) 09/06/17 06:20 Corrected Sodium 138 mmol/L (136-145) 09/06/17 06:20 Potassium 4.2 mmol/L (3.5-5.1) 09/06/17 06:20 Chloride 105 mmol/L (98-107) 09/06/17 06:20 Carbon Dioxide 22.6 mmol/L (21-32) 09/06/17 06:20 BUN 15 mg/dL (7-18) 09/06/17 06:20 Creatinine 0.67 mg/dL (0.55-1.02) 09/06/17 06:20 Est GFR (MDRD) Af Amer > 60 (>60) 09/06/17 06:20 Est GFR (MDRD) Non-Af > 60 (>60) 09/06/17 06:20 Glucose 114 mg/dL (65-99) H 09/06/17 06:20 Calcium 9.4 mg/dL (8.5-10.1) 09/06/17 06:20 Corrected Calcium 10.3 mg/dL (8.5-10.1) H 09/06/17 06:20 Total Bilirubin 6.70 mg/dL (0.2-1.0) H 09/06/17 06:20 AST 150 Units/L (15-37) H 09/06/17 06:20 ALT 236 Units/L (12-78) H 09/06/17 06:20 Alkaline Phosphatase 294 Units/L (46-116) H 09/06/17 06:20 Total Protein 7.2 g/dL (6.4-8.2) 09/06/17 06:20 Albumin 2.9 g/dL (3.4-5.0) L 09/06/17 06:20 Globulin 4.3 g/dL (2.5-4.5) 09/06/17 06:20 Albumin/Globulin Ratio 0.7 Ratio (1.1-2.1) L 09/06/17 06:20 Amylase 1250 Units/L (25-115) H 09/06/17 06:20 Lipase 6354 Units/L (73-393) H 09/06/17 06:20 Specimen Type Clean catch urine 09/05/17 16:19 Urine Color [place] (YELLOW) 09/05/17 16:19 Urine Appearance Slightly hazy (CLEAR) 09/05/17 16:19 Urine pH Cancelled 09/05/17 15:53 Ur Specific [place] Cancelled 09/05/17 15:53 Urine Protein Cancelled 09/05/17 15:53 Urine Glucose (UA) Cancelled 09/05/17 15:53 Urine Ketones Cancelled 09/05/17 15:53 Urine Occult Blood Cancelled 09/05/17 15:53 Urine Nitrite Cancelled 09/05/17 15:53 Urine Bilirubin Cancelled 09/05/17 15:53 Urine Urobilinogen Cancelled 09/05/17 15:53 Ur Leukocyte Esterase Cancelled 09/05/17 15:53 Urine RBC 5-10 /HPF (NONE SEEN) 09/05/17 16:19 Urine WBC 0-2 /HPF (NONE SEEN) 09/05/17 16:19 Ur Squamous Epith Cells Moderate /HPF (NEGATIVE) 09/05/17 16:19 Ur Transition Epith Cell Cancelled 09/05/17 15:53 Ur Renal Epithelial Cell Cancelled 09/05/17 15:53 Calcium Oxalate Crystal Cancelled 09/05/17 15:53 Cystine Crystals Cancelled 09/05/17 15:53 Uric Acid Crystals Cancelled 09/05/17 15:53 Triple Phos Crystals Cancelled 09/05/17 15:53 Tyrosine Crystals Cancelled 09/05/17 15:53 Other Crystals Cancelled 09/05/17 15:53 Amorphous Sediment Cancelled 09/05/17 15:53 Urine Bacteria 3+ /HPF (Negative) 09/05/17 16:19 Hyaline Casts Cancelled 09/05/17 15:53 Granular Casts Cancelled 09/05/17 15:53 Fine Granular Casts Cancelled 09/05/17 15:53 Coarse Granular Casts Cancelled 09/05/17 15:53 WBC Casts Cancelled 09/05/17 15:53 Other Casts Cancelled 09/05/17 15:53 Urine Mucus Cancelled 09/05/17 15:53 Urine Trichomonas Cancelled 09/05/17 15:53 Urine Yeast Cancelled 09/05/17 15:53 Urine Sperm Cancelled 09/05/17 15:53 Ur Culture Indicated? Yes/culture set up 09/05/17 16:19 Micro UA Comment Unable to perform (-) 09/05/17 16:19 H. pylori IgG Antibody Positive (NEGATIVE) A 09/05/17 15:38 - Plan (1) Abdominal pain Status: Acute Qualifiers: Abdominal location: upper abdomen, unspecified Qualified Code(s): R10.10 - Upper abdominal pain, unspecified Plan: PAIN AND NAUSEA CONTROL. GB US, IV ATBX. REPEAT AM LABS,. RESUME HOME PSYCH MEDICAITON, SURGICAL CONSULT. EKG AND CXR ON ADMISSION (2) Acute cholecystitis Status: Acute (3) Acute pancreatitis Status: Acute Qualifiers: Pancreatitis type: unspecified pancreatitis type Acute pancreatitis complication: unspecified Qualified Code(s): K85.90 - Acute pancreatitis without necrosis or infection, unspecified Plan: treatment for the pancreatitis with IVF ,hydration ,Protonix and ATB. GB US today . if having gallstone then will need Lap Melinda after the pancreatitis subsides,
[2017-09-06] MEDS ORDERED: BENADRYL INJ 50 MG VIAL IV ONE (15:59)
[2017-09-06] MEDS ORDERED: ZOFRAN INJ 4 MG VIAL 16 MG, ATIVAN INJ 2 MG VIAL 1 MG, DECADRON INJ 10 MG in NS 50 ML I... IV PRN (16:00)
[2017-09-06] MEDS ORDERED: NS 250 ML IV 250 ML IV ONE (16:00)
[2017-09-06] MEDS: ZOFRAN INJ 4 MG VIAL IVP PRN (16:44)
--- NOTE | 2017-09-06 16:52 | RAD ---
Chest, one view Indication: Hypertension Comparison: 12/24/2013 Findings: Heart size is normal. No focal consolidation, significant effusion or pneumothorax is ident ified. There is no acute osseous abnormality Impression: No acute cardiopulmonary abnormality. Reported By:
[2017-09-06] MEDS ORDERED: DEPAKOTE D.R. TAB PO ONE (20:49)
[2017-09-06] MEDS: DEPAKOTE D.R. TAB PO SCH (21:50)
[2017-09-06] MEDS: COGENTIN TAB 1 MG PO SCH (21:50)
[2017-09-06] MEDS: HALDOL PO SCH (21:50)
[2017-09-06] MEDS: PEPCID 20 MG IV PREMIX* 20 MG/50 ML BAG IV PRN (21:50)
[2017-09-07] MEDS: NS 1000 ML 1,000 ML IV SCH ×4 (02:29→20:20)
[2017-09-07 06:15] LABS: BASOPHILS % (AUTO) 0.7 % (0.2-1.0); EOSINOPHILS # (AUTO) 0.1 x10^3/uL (0.0-0.2); EOSINOPHILS % (AUTO) 2.6 % (0.9-2.9); HEMATOCRIT 35.3 % (36.0-47.0); LYMPHOCYTES # (AUTO) 1.2 X10^3/uL (1.3-2.9); MEAN CORPUSCULAR HEMOGLOBIN 29.9 pg (27.0-34.0); MEAN CORPUSCULAR HGB CONC 34.1 g/dL (33.0-35.0); MEAN CORPUSCULAR VOLUME 87.6 fL (80.0-100.0); MEAN PLATELET VOLUME 7.9 fL (7.4-11.0); MONOCYTES # (AUTO) 0.3 x10^3/uL (0.3-0.8); MONOCYTES % (AUTO) 6.4 % (0.0-13.0); NEUTROPHILS % (AUTO) 64.3 % (42.0-75.0); PLATELET COUNT 143 X10^3/uL (150.0-450.0); RED BLOOD COUNT 4.02 X10^6/uL (3.5-5.4); RED CELL DISTRIBUTION WIDTH 14.6 % (11.6-16.5); WHITE BLOOD COUNT 4.7 X10^3/uL (3.6-10.0)
[2017-09-07 06:18] LABS: ALANINE AMINOTRANSFERASE 168 Units/L (12-78); ALBUMIN 2.5 g/dL (3.4-5.0); ALKALINE PHOSPHATASE 256 Units/L (46-116); AMYLASE 205 Units/L (25-115); ASPARTATE AMINO TRANSFERASE 80 Units/L (15-37); BLOOD UREA NITROGEN 9 mg/dL (7-18); CALCIUM 8.7 mg/dL (8.5-10.1); CARBON DIOXIDE 23.6 mmol/L (21-32); CHLORIDE 108 mmol/L (98-107); COR CA(FOR HYPOALB) 9.9 mg/dL (8.5-10.1); CREATININE 0.52 mg/dL (0.55-1.02); LIPASE 501 Units/L (73-393); SODIUM 140 mmol/L (136-145); TOTAL PROTEIN 6.3 g/dL (6.4-8.2); eGFR BLACK RACES > 60 (>60); eGFR NON BLACK RACES > 60 (>60)
[2017-09-07] MEDS ORDERED: DEPAKOTE D.R. TAB PO ONE ×2 (08:15→19:11)
[2017-09-07] MEDS: HALDOL PO SCH ×2 (08:30→20:20)
[2017-09-07] MEDS: COGENTIN TAB 1 MG PO SCH ×2 (08:30→20:20)
[2017-09-07] MEDS: DEPAKOTE D.R. TAB PO SCH ×2 (08:30→20:20)
[2017-09-07] MEDS: PATIENT'S HOME MEDICATION PO SCH (08:36)
[2017-09-07] MEDS ORDERED: HALDOL PO SCH (09:00)
--- NOTE | 2017-09-07 09:09 | DR.PROGNOT ---
Hospital Progress Notes - Progress Note for Day of: Progress Note Date: 09/07/17 - Chief Complaint Chief Complaint: feeling better with moderate abdominal pain , no nausea or vomiting . amylase ,lipase and LFT are better ,Bilir 1.7. CBC normal now . no fever . - Past Medical Family Social History Past Med/Fam/Surg Hx: No changes since H&P Allergies: Allergies aspirin Allergy (Verified 05/08/17 19:17) - Review Of Systems ROS: No change since H&P - Vital Signs Vital Signs: Temperature 98.1 F Pulse Rate [Left Brachial] 76 Pulse Rate [Left] 100 Pulse Rate 115 Respiratory Rate 18 Blood Pressure [Left Arm] 107/64 Blood Pressure [Right Arm] 134/77 Blood Pressure 137/91 O2 Sat by Pulse Oximetry 100 - Physical Exam Oriented: Normal Eyes: Normal Ear: Normal Nose: Normal Throat: Normal Respiratory: Normal Cardiovascular: Normal : Normal GI:Auscultation: Normal GI:Palpation: Normal GI: Tenderness: RUQ, Epigastric Skin: Normal Musculoskeletal: Back:Thoracic Psychiatric: Anxiety Affect: Anxious Speech Pattern: Clear, Appropriate - Laboratory and Diagnostics Result Diagrams: 09/07/17 05:58 09/07/17 05:58 Labs: 09/05/17 16:19 Urine,Clean Catch Urine Culture - Final Laboratory WBC 4.7 X10^3/uL (3.6-10.0) 09/07/17 05:58 RBC 4.02 X10^6/uL (3.5-5.4) 09/07/17 05:58 Hgb 12.0 g/dL (12.0-16.0) 09/07/17 05:58 Hct 35.3 % (36.0-47.0) L 09/07/17 05:58 MCV 87.6 fL (80.0-100.0) 09/07/17 05:58 MCH 29.9 pg (27.0-34.0) 09/07/17 05:58 MCHC 34.1 g/dL (33.0-35.0) 09/07/17 05:58 RDW 14.6 % (11.6-16.5) 09/07/17 05:58 Plt Count 143 X10^3/uL (150.0-450.0) L 09/07/17 05:58 MPV 7.9 fL (7.4-11.0) 09/07/17 05:58 Neut % 64.3 % (42.0-75.0) 09/07/17 05:58 Lymph % 26.0 % (21.0-51.0) 09/07/17 05:58 [place] % 6.4 % (0.0-13.0) 09/07/17 05:58 Eos % 2.6 % (0.9-2.9) 09/07/17 05:58 Baso % 0.7 % (0.2-1.0) 09/07/17 05:58 Neut # 3.0 x10^3/uL (2.2-4.8) 09/07/17 05:58 Lymph # 1.2 X10^3/uL (1.3-2.9) L 09/07/17 05:58 [place] # 0.3 x10^3/uL (0.3-0.8) 09/07/17 05:58 Eos # 0.1 x10^3/uL (0.0-0.2) 09/07/17 05:58 Baso # 0.0 X10^3/uL (0.0-0.1) 09/07/17 05:58 Absolute Nucleated RBC 0.0 /100WBC 09/07/17 05:58 Sodium 140 mmol/L (136-145) 09/07/17 05:58 Corrected Sodium TNP 09/07/17 05:58 Potassium 3.9 mmol/L (3.5-5.1) 09/07/17 05:58 Chloride 108 mmol/L (98-107) H 09/07/17 05:58 Carbon Dioxide 23.6 mmol/L (21-32) 09/07/17 05:58 BUN 9 mg/dL (7-18) 09/07/17 05:58 Creatinine 0.52 mg/dL (0.55-1.02) L 09/07/17 05:58 Est GFR (MDRD) Af Amer > 60 (>60) 09/07/17 05:58 Est GFR (MDRD) Non-Af > 60 (>60) 09/07/17 05:58 Glucose 88 mg/dL (65-99) 09/07/17 05:58 Calcium 8.7 mg/dL (8.5-10.1) 09/07/17 05:58 Corrected Calcium 9.9 mg/dL (8.5-10.1) 09/07/17 05:58 Total Bilirubin 1.70 mg/dL (0.2-1.0) H 09/07/17 05:58 AST 80 Units/L (15-37) H 09/07/17 05:58 ALT 168 Units/L (12-78) H 09/07/17 05:58 Alkaline Phosphatase 256 Units/L (46-116) H 09/07/17 05:58 Total Protein 6.3 g/dL (6.4-8.2) L 09/07/17 05:58 Albumin 2.5 g/dL (3.4-5.0) L 09/07/17 05:58 Globulin 3.8 g/dL (2.5-4.5) 09/07/17 05:58 Albumin/Globulin Ratio 0.7 Ratio (1.1-2.1) L 09/07/17 05:58 Amylase 205 Units/L (25-115) H 09/07/17 05:58 Lipase 501 Units/L (73-393) H 09/07/17 05:58 Specimen Type Clean catch urine 09/05/17 16:19 Urine Color [place] (YELLOW) 09/05/17 16:19 Urine Appearance Slightly hazy (CLEAR) 09/05/17 16:19 Urine pH Cancelled 09/05/17 15:53 Ur Specific [place] Cancelled 09/05/17 15:53 Urine Protein Cancelled 09/05/17 15:53 Urine Glucose (UA) Cancelled 09/05/17 15:53 Urine Ketones Cancelled 09/05/17 15:53 Urine Occult Blood Cancelled 09/05/17 15:53 Urine Nitrite Cancelled 09/05/17 15:53 Urine Bilirubin Cancelled 09/05/17 15:53 Urine Urobilinogen Cancelled 09/05/17 15:53 Ur Leukocyte Esterase Cancelled 09/05/17 15:53 Urine RBC 5-10 /HPF (NONE SEEN) 09/05/17 16:19 Urine WBC 0-2 /HPF (NONE SEEN) 09/05/17 16:19 Ur Squamous Epith Cells Moderate /HPF (NEGATIVE) 09/05/17 16:19 Ur Transition Epith Cell Cancelled 09/05/17 15:53 Ur Renal Epithelial Cell Cancelled 09/05/17 15:53 Calcium Oxalate Crystal Cancelled 09/05/17 15:53 Cystine Crystals Cancelled 09/05/17 15:53 Uric Acid Crystals Cancelled 09/05/17 15:53 Triple Phos Crystals Cancelled 09/05/17 15:53 Tyrosine Crystals Cancelled 09/05/17 15:53 Other Crystals Cancelled 09/05/17 15:53 Amorphous Sediment Cancelled 09/05/17 15:53 Urine Bacteria 3+ /HPF (Negative) 09/05/17 16:19 Hyaline Casts Cancelled 09/05/17 15:53 Granular Casts Cancelled 09/05/17 15:53 Fine Granular Casts Cancelled 09/05/17 15:53 Coarse Granular Casts Cancelled 09/05/17 15:53 WBC Casts Cancelled 09/05/17 15:53 Other Casts Cancelled 09/05/17 15:53 Urine Mucus Cancelled 09/05/17 15:53 Urine Trichomonas Cancelled 09/05/17 15:53 Urine Yeast Cancelled 09/05/17 15:53 Urine Sperm Cancelled 09/05/17 15:53 Ur Culture Indicated? Yes/culture set up 09/05/17 16:19 Micro UA Comment Unable to perform (-) 09/05/17 16:19 H. pylori IgG Antibody Positive (NEGATIVE) A 09/05/17 15:38 - Assessment and Plan 1: subsiding Gallstone pancreatitis . for Lap gely on saturday . - Problem Patient Problems: Patient Problems Abdominal pain (Acute) R10.9 Acute cholecystitis (Acute) K81.0 Acute pancreatitis (Acute) K85.90 Hypokalemia (Acute) E87.6 Hyponatremia (Acute) E87.1
[2017-09-08] MEDS: NS 1000 ML 1,000 ML IV SCH ×3 (05:28→19:52)
[2017-09-08 06:08] LABS: BASOPHILS % (AUTO) 0.5 % (0.2-1.0); EOSINOPHILS # (AUTO) 0.1 x10^3/uL (0.0-0.2); EOSINOPHILS % (AUTO) 3.4 % (0.9-2.9); HEMATOCRIT 37.2 % (36.0-47.0); HEMOGLOBIN 12.6 g/dL (12.0-16.0); LYMPHOCYTES # (AUTO) 1.6 X10^3/uL (1.3-2.9); LYMPHOCYTES % (AUTO) 39.8 % (21.0-51.0); MEAN CORPUSCULAR HEMOGLOBIN 29.7 pg (27.0-34.0); MEAN CORPUSCULAR HGB CONC 33.9 g/dL (33.0-35.0); MEAN CORPUSCULAR VOLUME 87.6 fL (80.0-100.0); MEAN PLATELET VOLUME 7.9 fL (7.4-11.0); MONOCYTES # (AUTO) 0.2 x10^3/uL (0.3-0.8); MONOCYTES % (AUTO) 6.2 % (0.0-13.0); NEUTROPHILS % (AUTO) 50.1 % (42.0-75.0); PLATELET COUNT 152 X10^3/uL (150.0-450.0); RED BLOOD COUNT 4.25 X10^6/uL (3.5-5.4); RED CELL DISTRIBUTION WIDTH 14.7 % (11.6-16.5); WHITE BLOOD COUNT 3.9 X10^3/uL (3.6-10.0)
[2017-09-08 07:06] LABS: ALANINE AMINOTRANSFERASE 116 Units/L (12-78); ALBUMIN 2.5 g/dL (3.4-5.0); ALKALINE PHOSPHATASE 222 Units/L (46-116); AMYLASE 70 Units/L (25-115); ASPARTATE AMINO TRANSFERASE 40 Units/L (15-37); BLOOD UREA NITROGEN 6 mg/dL (7-18); CARBON DIOXIDE 26.3 mmol/L (21-32); CHLORIDE 107 mmol/L (98-107); COR CA(FOR HYPOALB) 10.2 mg/dL (8.5-10.1); CREATININE 0.45 mg/dL (0.55-1.02); LIPASE 276 Units/L (73-393); SODIUM 143 mmol/L (136-145); TOTAL PROTEIN 6.4 g/dL (6.4-8.2); eGFR BLACK RACES > 60 (>60); eGFR NON BLACK RACES > 60 (>60)
[2017-09-08] MEDS ORDERED: DEPAKOTE D.R. TAB PO ONE ×2 (08:32→19:12)
[2017-09-08] MEDS: HALDOL PO SCH ×2 (09:46→20:03)
[2017-09-08] MEDS: MILK OF MAGNESIA PO SCH ×2 (09:46→20:03)
[2017-09-08] MEDS: COLACE CAP 100 MG PO SCH ×2 (09:46→20:02)
[2017-09-08] MEDS: DEPAKOTE D.R. TAB PO SCH ×2 (09:46→20:02)
[2017-09-08] MEDS: PATIENT'S HOME MEDICATION PO SCH (09:48)
[2017-09-08] MEDS: COGENTIN TAB 1 MG PO SCH ×2 (09:48→20:02)
--- NOTE | 2017-09-08 10:11 | DR.PROGNOT ---
Hospital Progress Notes - Progress Note for Day of: Progress Note Date: 09/08/17 - Chief Complaint Chief Complaint: feeling better with no abdominal pain , no nausea or vomiting . slight elevated Alk Phos and normal bilirubin. CBC normal now . no fever . - Past Medical Family Social History Past Med/Fam/Surg Hx: No changes since H&P Allergies: Allergies aspirin Allergy (Verified 05/08/17 19:17) - Review Of Systems ROS: No change since H&P - Vital Signs Vital Signs: Temperature 97.5 F Pulse Rate [Left Brachial] 75 Pulse Rate [Left] 100 Pulse Rate 115 Respiratory Rate 18 Blood Pressure [Left Arm] 118/63 Blood Pressure [Right Arm] 104/65 Blood Pressure 137/91 O2 Sat by Pulse Oximetry 96 - Physical Exam Oriented: Normal Eyes: Normal Ear: Normal Nose: Normal Throat: Normal Respiratory: Normal Cardiovascular: Normal : Normal GI:Auscultation: Normal GI:Palpation: Normal GI: Tenderness: RUQ, Epigastric Skin: Normal Musculoskeletal: Back:Thoracic Psychiatric: Anxiety Affect: Anxious Speech Pattern: Clear, Appropriate - Laboratory and Diagnostics Result Diagrams: 09/08/17 04:45 09/08/17 04:45 Labs: 09/05/17 16:19 Urine,Clean Catch Urine Culture - Final Laboratory WBC 3.9 X10^3/uL (3.6-10.0) 09/08/17 04:45 RBC 4.25 X10^6/uL (3.5-5.4) 09/08/17 04:45 Hgb 12.6 g/dL (12.0-16.0) 09/08/17 04:45 Hct 37.2 % (36.0-47.0) 09/08/17 04:45 MCV 87.6 fL (80.0-100.0) 09/08/17 04:45 MCH 29.7 pg (27.0-34.0) 09/08/17 04:45 MCHC 33.9 g/dL (33.0-35.0) 09/08/17 04:45 RDW 14.7 % (11.6-16.5) 09/08/17 04:45 Plt Count 152 X10^3/uL (150.0-450.0) 09/08/17 04:45 MPV 7.9 fL (7.4-11.0) 09/08/17 04:45 Neut % 50.1 % (42.0-75.0) 09/08/17 04:45 Lymph % 39.8 % (21.0-51.0) 09/08/17 04:45 [place] % 6.2 % (0.0-13.0) 09/08/17 04:45 Eos % 3.4 % (0.9-2.9) H 09/08/17 04:45 Baso % 0.5 % (0.2-1.0) 09/08/17 04:45 Neut # 2.0 x10^3/uL (2.2-4.8) L 09/08/17 04:45 Lymph # 1.6 X10^3/uL (1.3-2.9) 09/08/17 04:45 [place] # 0.2 x10^3/uL (0.3-0.8) L 09/08/17 04:45 Eos # 0.1 x10^3/uL (0.0-0.2) 09/08/17 04:45 Baso # 0.0 X10^3/uL (0.0-0.1) 09/08/17 04:45 Absolute Nucleated RBC 0.0 /100WBC 09/08/17 04:45 Sodium 143 mmol/L (136-145) 09/08/17 04:45 Corrected Sodium TNP 09/08/17 04:45 Potassium 3.5 mmol/L (3.5-5.1) 09/08/17 04:45 Chloride 107 mmol/L (98-107) 09/08/17 04:45 Carbon Dioxide 26.3 mmol/L (21-32) 09/08/17 04:45 BUN 6 mg/dL (7-18) L 09/08/17 04:45 Creatinine 0.45 mg/dL (0.55-1.02) L 09/08/17 04:45 Est GFR (MDRD) Af Amer > 60 (>60) 09/08/17 04:45 Est GFR (MDRD) Non-Af > 60 (>60) 09/08/17 04:45 Glucose 82 mg/dL (65-99) 09/08/17 04:45 Calcium 9.0 mg/dL (8.5-10.1) 09/08/17 04:45 Corrected Calcium 10.2 mg/dL (8.5-10.1) H 09/08/17 04:45 Total Bilirubin 0.90 mg/dL (0.2-1.0) 09/08/17 04:45 AST 40 Units/L (15-37) H 09/08/17 04:45 ALT 116 Units/L (12-78) H 09/08/17 04:45 Alkaline Phosphatase 222 Units/L (46-116) H 09/08/17 04:45 Total Protein 6.4 g/dL (6.4-8.2) 09/08/17 04:45 Albumin 2.5 g/dL (3.4-5.0) L 09/08/17 04:45 Globulin 3.9 g/dL (2.5-4.5) 09/08/17 04:45 Albumin/Globulin Ratio 0.6 Ratio (1.1-2.1) L 09/08/17 04:45 Amylase 70 Units/L (25-115) 09/08/17 04:45 Lipase 276 Units/L (73-393) 09/08/17 04:45 Specimen Type Clean catch urine 09/05/17 16:19 Urine Color [place] (YELLOW) 09/05/17 16:19 Urine Appearance Slightly hazy (CLEAR) 09/05/17 16:19 Urine pH Cancelled 09/05/17 15:53 Ur Specific [place] Cancelled 09/05/17 15:53 Urine Protein Cancelled 09/05/17 15:53 Urine Glucose (UA) Cancelled 09/05/17 15:53 Urine Ketones Cancelled 09/05/17 15:53 Urine Occult Blood Cancelled 09/05/17 15:53 Urine Nitrite Cancelled 09/05/17 15:53 Urine Bilirubin Cancelled 09/05/17 15:53 Urine Urobilinogen Cancelled 09/05/17 15:53 Ur Leukocyte Esterase Cancelled 09/05/17 15:53 Urine RBC 5-10 /HPF (NONE SEEN) 09/05/17 16:19 Urine WBC 0-2 /HPF (NONE SEEN) 09/05/17 16:19 Ur Squamous Epith Cells Moderate /HPF (NEGATIVE) 09/05/17 16:19 Ur Transition Epith Cell Cancelled 09/05/17 15:53 Ur Renal Epithelial Cell Cancelled 09/05/17 15:53 Calcium Oxalate Crystal Cancelled 09/05/17 15:53 Cystine Crystals Cancelled 09/05/17 15:53 Uric Acid Crystals Cancelled 09/05/17 15:53 Triple Phos Crystals Cancelled 09/05/17 15:53 Tyrosine Crystals Cancelled 09/05/17 15:53 Other Crystals Cancelled 09/05/17 15:53 Amorphous Sediment Cancelled 09/05/17 15:53 Urine Bacteria 3+ /HPF (Negative) 09/05/17 16:19 Hyaline Casts Cancelled 09/05/17 15:53 Granular Casts Cancelled 09/05/17 15:53 Fine Granular Casts Cancelled 09/05/17 15:53 Coarse Granular Casts Cancelled 09/05/17 15:53 WBC Casts Cancelled 09/05/17 15:53 Other Casts Cancelled 09/05/17 15:53 Urine Mucus Cancelled 09/05/17 15:53 Urine Trichomonas Cancelled 09/05/17 15:53 Urine Yeast Cancelled 09/05/17 15:53 Urine Sperm Cancelled 09/05/17 15:53 Ur Culture Indicated? Yes/culture set up 09/05/17 16:19 Micro UA Comment Unable to perform (-) 09/05/17 16:19 H. pylori IgG Antibody Positive (NEGATIVE) A 09/05/17 15:38 - Assessment and Plan 1: subsiding Gallstone pancreatitis . for Lap gely on saturday . - Problem Patient Problems: Patient Problems Abdominal pain (Acute) R10.9 Acute cholecystitis (Acute) K81.0 Acute pancreatitis (Acute) K85.90 Hypokalemia (Acute) E87.6 Hyponatremia (Acute) E87.1
[2017-09-09] MEDS: NS 1000 ML 1,000 ML IV SCH ×3 (01:51→13:02)
[2017-09-09 06:04] LABS: BASOPHILS % (AUTO) 0.4 % (0.2-1.0); EOSINOPHILS # (AUTO) 0.1 x10^3/uL (0.0-0.2); EOSINOPHILS % (AUTO) 3.3 % (0.9-2.9); HEMATOCRIT 36.3 % (36.0-47.0); HEMOGLOBIN 12.5 g/dL (12.0-16.0); LYMPHOCYTES # (AUTO) 1.7 X10^3/uL (1.3-2.9); MEAN CORPUSCULAR HEMOGLOBIN 30.2 pg (27.0-34.0); MEAN CORPUSCULAR HGB CONC 34.5 g/dL (33.0-35.0); MEAN CORPUSCULAR VOLUME 87.3 fL (80.0-100.0); MEAN PLATELET VOLUME 7.8 fL (7.4-11.0); MONOCYTES # (AUTO) 0.3 x10^3/uL (0.3-0.8); MONOCYTES % (AUTO) 6.7 % (0.0-13.0); NEUTROPHILS # (AUTO) 1.9 x10^3/uL (2.2-4.8); NEUTROPHILS % (AUTO) 47.6 % (42.0-75.0); PLATELET COUNT 160 X10^3/uL (150.0-450.0); RED BLOOD COUNT 4.16 X10^6/uL (3.5-5.4); RED CELL DISTRIBUTION WIDTH 14.3 % (11.6-16.5)
[2017-09-09 06:43] LABS: ALANINE AMINOTRANSFERASE 85 Units/L (12-78); ALBUMIN 2.5 g/dL (3.4-5.0); ALKALINE PHOSPHATASE 189 Units/L (46-116); ASPARTATE AMINO TRANSFERASE 27 Units/L (15-37); BLOOD UREA NITROGEN 6 mg/dL (7-18); CARBON DIOXIDE 26.5 mmol/L (21-32); CHLORIDE 106 mmol/L (98-107); COR CA(FOR HYPOALB) 10.2 mg/dL (8.5-10.1); CREATININE 0.46 mg/dL (0.55-1.02); SODIUM 142 mmol/L (136-145); TOTAL PROTEIN 6.3 g/dL (6.4-8.2); eGFR BLACK RACES > 60 (>60); eGFR NON BLACK RACES > 60 (>60)
[2017-09-09] MEDS ORDERED: K-RIDER 10 MEQ/NS 100 ML 10 MEQ/100 ML BAG IV PRN (06:57)
[2017-09-09] MEDS ORDERED: MAG-OX TAB PO PRN (06:57)
[2017-09-09] MEDS ORDERED: POTASSIUM CHL 60 MEQ/NS 0.45% 500 ML IV PRN (06:57)
[2017-09-09] MEDS ORDERED: K-LYTE EFFERVESCENT PO PRN (06:57)
[2017-09-09] MEDS ORDERED: POTASSIUM CHL 40 MEQ/NS 0.45% 500 ML IV PRN (06:57)
[2017-09-09] MEDS ORDERED: POTASSIUM CHLORIDE LIQ 20 MEQ UDC PO PRN (06:57)
[2017-09-09] MEDS ORDERED: DEPAKOTE D.R. TAB PO ONE (08:10)
[2017-09-09] MEDS: HALDOL PO SCH ×2 (08:17→20:21)
[2017-09-09] MEDS: COGENTIN TAB 1 MG PO SCH ×2 (08:17→20:20)
[2017-09-09] MEDS: DEPAKOTE D.R. TAB PO SCH ×2 (08:17→20:21)
[2017-09-09] MEDS: COLACE CAP 100 MG PO SCH ×2 (08:29→20:20)
[2017-09-09] MEDS: MILK OF MAGNESIA PO SCH ×2 (08:29→20:21)
[2017-09-09] MEDS: PATIENT'S HOME MEDICATION PO SCH (08:30)
[2017-09-09] MEDS ORDERED: LR 1000 ML IV 1,000 ML IV ONE ×2 (10:36→12:10)
[2017-09-09] MEDS: ANCEF 1 GM IV PREMIX* 2 GM/100 ML BAG IV ONE ×2 (11:14→11:28)
[2017-09-09] MEDS ORDERED: XYLOCAINE 1 % (PLAIN) ONE (11:15)
[2017-09-09] MEDS ORDERED: FENTANYL INJ 250 mcg ONE (11:18)
[2017-09-09] MEDS ORDERED: DECADRON INJ ONE (11:18)
[2017-09-09] MEDS ORDERED: NS IRRIGATION IR ONE (12:09)
[2017-09-09] MEDS ORDERED: BACITRACIN VIAL ONE (13:40)
[2017-09-09] MEDS ORDERED: DILAUDID INJ ONE (13:40)
[2017-09-09] MEDS ORDERED: REGLAN INJ 10 MG VIAL IVP PRN (15:22)
[2017-09-09] MEDS ORDERED: ZOFRAN INJ 4 MG VIAL IVP PRN (15:22)
[2017-09-09] MEDS ORDERED: PHENERGAN INJ 25 MG IVP PRN (15:22)
[2017-09-09] MEDS ORDERED: DILAUDID INJ IVP PRN (15:22)
[2017-09-09] MEDS ORDERED: BENADRYL INJ 50 MG VIAL IVP PRN (15:22)
[2017-09-09 15:42] LABS: BILIRUBIN,URINE NEGATIVE (NEGATIVE); BLOOD/HEMOGLOBIN,URINE NEGATIVE (NEGATIVE); GLUCOSE, URINE NEGATIVE (NEGATIVE); KETONES,URINE 1+ (NEGATIVE); LEUKOCYTE ESTERASE ,URINE NEGATIVE (NEGATIVE); NITRITES,URINE NEGATIVE (NEGATIVE); PROTEIN,URINE 1+ (NEGATIVE); UROBILINOGEN,URINE NORMAL (NORMAL)
[2017-09-09 15:48] LABS: APPEARANCE,URINE CLEAR (CLEAR); BACTERIA,URINE NEGATIVE /HPF (NEGATIVE); COLOR,URINE YELLOW (YELLOW); RBC,URINE 0-2 /HPF (NONE SEEN); SQUAMOUS EPITHELIAL CELL,UR NEGATIVE /HPF (NEGATIVE)
[2017-09-09] MEDS ORDERED: VERSED ONE (15:49)
[2017-09-09] MEDS ORDERED: NORCURON INJ 10 MG VIAL ONE (15:49)
[2017-09-09] MEDS ORDERED: XYLOCAINE 2 % (PLAIN) ONE (15:49)
[2017-09-09] MEDS ORDERED: DIPRIVAN VIAL ONE (15:49)
[2017-09-09] MEDS ORDERED: QUELICIN (OR ANECTINE) ONE (15:49)
[2017-09-09] MEDS ORDERED: SUPRANE IN ONE (15:49)
[2017-09-09] MEDS ORDERED: DEMEROL INJ IM PRN (16:28)
--- NOTE | 2017-09-09 17:11 | OR.GENERIC ---
Post-Op Note Generic - Post-Op Note Operative Report: POST Op note see dictation.. diagnostic laparoscopy , exploratory laparatomy . , cholecystectomy , liver Bx finding : severe acute calculus cholecystitis with inflamation around the kelly hepatis with dense scars around the GB . , cystic duct and CBD ..retrograde cholecystectomy was done ,,small part of the GB wall attached to the CBD was let in place ..open liver BX was done because of the fatty liver .. Pt did well EBL 250 cc .. on IV ATB . DVT prophylaxis , incentive spirometer and repeat lab work..
[2017-09-09] MEDS ORDERED: DEMEROL INJ IVP ONE ×2 (18:00)
[2017-09-09] MEDS: D5 1/2 NS 1000 ML 1,000 ML IV SCH (18:15)
[2017-09-09] MEDS: MAGNESIUM SULFATE 1 GM/100 mL PREMIX 1 GM/100 ML BAG IV PRN ×2 (20:20→21:23)
[2017-09-09] MEDS: DILAUDID INJ IVP PRN (21:03)
[2017-09-10] MEDS: DILAUDID INJ IVP PRN ×3 (00:43→21:06)
[2017-09-10] MEDS: D5 1/2 NS 1000 ML 1,000 ML IV SCH ×4 (02:22→17:37)
[2017-09-10 06:29] LABS: BASOPHILS % (AUTO) 0.2 % (0.2-1.0); HEMATOCRIT 34.1 % (36.0-47.0); HEMOGLOBIN 11.9 g/dL (12.0-16.0); LYMPHOCYTES # (AUTO) 0.6 X10^3/uL (1.3-2.9); LYMPHOCYTES % (AUTO) 9.2 % (21.0-51.0); MEAN CORPUSCULAR HGB CONC 34.8 g/dL (33.0-35.0); MEAN CORPUSCULAR VOLUME 86.4 fL (80.0-100.0); MEAN PLATELET VOLUME 7.3 fL (7.4-11.0); MONOCYTES # (AUTO) 0.5 x10^3/uL (0.3-0.8); NEUTROPHILS # (AUTO) 5.7 x10^3/uL (2.2-4.8); NEUTROPHILS % (AUTO) 83.6 % (42.0-75.0); PLATELET COUNT 163 X10^3/uL (150.0-450.0); RED BLOOD COUNT 3.95 X10^6/uL (3.5-5.4); RED CELL DISTRIBUTION WIDTH 14.3 % (11.6-16.5); WHITE BLOOD COUNT 6.8 X10^3/uL (3.6-10.0)
[2017-09-10 06:35] LABS: ALANINE AMINOTRANSFERASE 126 Units/L (12-78); ALBUMIN 2.4 g/dL (3.4-5.0); ALKALINE PHOSPHATASE 153 Units/L (46-116); ASPARTATE AMINO TRANSFERASE 89 Units/L (15-37); BLOOD UREA NITROGEN 9 mg/dL (7-18); CALCIUM 8.5 mg/dL (8.5-10.1); CARBON DIOXIDE 27.9 mmol/L (21-32); CHLORIDE 104 mmol/L (98-107); COR CA(FOR HYPOALB) 9.8 mg/dL (8.5-10.1); COR NA(FOR HYPERGLY) 138 mmol/L (136-145); CREATININE 0.55 mg/dL (0.55-1.02); MAGNESIUM 2.2 mg/dL (1.7-2.9); SODIUM 137 mmol/L (136-145); TOTAL PROTEIN 6.1 g/dL (6.4-8.2); eGFR BLACK RACES > 60 (>60); eGFR NON BLACK RACES > 60 (>60)
--- NOTE | 2017-09-10 08:20 | DR.PROGNOT ---
Hospital Progress Notes - Progress Note for Day of: Progress Note Date: 09/10/17 - Chief Complaint Chief Complaint: PO cholecystectomy day 1. moderate incisional pain . no nausea or vomiting , good urine out put. Bilirubin and LFT almost WNL. no bile in EMMA .. - Past Medical Family Social History Past Med/Fam/Surg Hx: No changes since H&P Allergies: Allergies aspirin Allergy (Verified 05/08/17 19:17) - Review Of Systems ROS: No change since H&P - Vital Signs Vital Signs: Temperature 100 F Pulse Rate [Left Brachial] 101 Pulse Rate [Left] 100 Pulse Rate 116 Respiratory Rate 17 Blood Pressure [Left Arm] 122/68 Blood Pressure [Right Arm] 104/65 Blood Pressure 164/82 O2 Sat by Pulse Oximetry 93 - Physical Exam Oriented: Normal Eyes: Normal Ear: Normal Nose: Normal Throat: Normal Respiratory: Normal Cardiovascular: Normal : Normal GI:Auscultation: Normal GI:Palpation: Normal GI: Tenderness: RUQ, Epigastric Skin: Normal Musculoskeletal: Back:Thoracic Psychiatric: Anxiety Mood Description: Calm Affect: Anxious Speech Pattern: Clear, Appropriate - Laboratory and Diagnostics Result Diagrams: 09/10/17 05:54 09/10/17 05:54 Labs: 09/05/17 16:19 Urine,Clean Catch Urine Culture - Final Laboratory WBC 6.8 X10^3/uL (3.6-10.0) 09/10/17 05:54 RBC 3.95 X10^6/uL (3.5-5.4) 09/10/17 05:54 Hgb 11.9 g/dL (12.0-16.0) L 09/10/17 05:54 Hct 34.1 % (36.0-47.0) L 09/10/17 05:54 MCV 86.4 fL (80.0-100.0) 09/10/17 05:54 MCH 30.0 pg (27.0-34.0) 09/10/17 05:54 MCHC 34.8 g/dL (33.0-35.0) 09/10/17 05:54 RDW 14.3 % (11.6-16.5) 09/10/17 05:54 Plt Count 163 X10^3/uL (150.0-450.0) 09/10/17 05:54 MPV 7.3 fL (7.4-11.0) L 09/10/17 05:54 Neut % 83.6 % (42.0-75.0) H 09/10/17 05:54 Lymph % 9.2 % (21.0-51.0) L 09/10/17 05:54 [place] % 7.0 % (0.0-13.0) 09/10/17 05:54 Eos % 0.0 % (0.9-2.9) L 09/10/17 05:54 Baso % 0.2 % (0.2-1.0) 09/10/17 05:54 Neut # 5.7 x10^3/uL (2.2-4.8) H 09/10/17 05:54 Lymph # 0.6 X10^3/uL (1.3-2.9) L 09/10/17 05:54 [place] # 0.5 x10^3/uL (0.3-0.8) 09/10/17 05:54 Eos # 0.0 x10^3/uL (0.0-0.2) 09/10/17 05:54 Baso # 0.0 X10^3/uL (0.0-0.1) 09/10/17 05:54 Absolute Nucleated RBC 0.0 /100WBC 09/10/17 05:54 Sodium 137 mmol/L (136-145) 09/10/17 05:54 Corrected Sodium 138 mmol/L (136-145) 09/10/17 05:54 Potassium 4.0 mmol/L (3.5-5.1) 09/10/17 05:54 Chloride 104 mmol/L (98-107) 09/10/17 05:54 Carbon Dioxide 27.9 mmol/L (21-32) 09/10/17 05:54 BUN 9 mg/dL (7-18) 09/10/17 05:54 Creatinine 0.55 mg/dL (0.55-1.02) 09/10/17 05:54 Est GFR (MDRD) Af Amer > 60 (>60) 09/10/17 05:54 Est GFR (MDRD) Non-Af > 60 (>60) 09/10/17 05:54 Glucose 137 mg/dL (65-99) H 09/10/17 05:54 Calcium 8.5 mg/dL (8.5-10.1) 09/10/17 05:54 Corrected Calcium 9.8 mg/dL (8.5-10.1) 09/10/17 05:54 Magnesium 2.2 mg/dL (1.7-2.9) 09/10/17 05:54 Total Bilirubin 0.90 mg/dL (0.2-1.0) 09/10/17 05:54 AST 89 Units/L (15-37) H 09/10/17 05:54 ALT 126 Units/L (12-78) H 09/10/17 05:54 Alkaline Phosphatase 153 Units/L (46-116) H 09/10/17 05:54 Total Protein 6.1 g/dL (6.4-8.2) L 09/10/17 05:54 Albumin 2.4 g/dL (3.4-5.0) L 09/10/17 05:54 Globulin 3.7 g/dL (2.5-4.5) 09/10/17 05:54 Albumin/Globulin Ratio 0.6 Ratio (1.1-2.1) L 09/10/17 05:54 Amylase 70 Units/L (25-115) 09/08/17 04:45 Lipase 276 Units/L (73-393) 09/08/17 04:45 Specimen Type Catherized urine 09/09/17 15:11 Urine Color Yellow (YELLOW) 09/09/17 15:11 Urine Appearance Clear (CLEAR) 09/09/17 15:11 Urine pH 7.0 (5.0 - 8.0) 09/09/17 15:11 Ur Specific [place] 1.010 (1.000-1.030) 09/09/17 15:11 Urine Protein 1+ (NEGATIVE) 09/09/17 15:11 Urine Glucose (UA) Negative (NEGATIVE) 09/09/17 15:11 Urine Ketones 1+ (NEGATIVE) 09/09/17 15:11 Urine Occult Blood Negative (NEGATIVE) 09/09/17 15:11 Urine Nitrite Negative (NEGATIVE) 09/09/17 15:11 Urine Bilirubin Negative (NEGATIVE) 09/09/17 15:11 Urine Urobilinogen Normal (NORMAL) 09/09/17 15:11 Ur Leukocyte Esterase Negative (NEGATIVE) 09/09/17 15:11 Urine RBC 0-2 /HPF (NONE SEEN) 09/09/17 15:11 Urine WBC None seen /HPF (NONE SEEN) 09/09/17 15:11 Ur Squamous Epith Cells Negative /HPF (NEGATIVE) 09/09/17 15:11 Ur Transition Epith Cell Cancelled 09/05/17 15:53 Ur Renal Epithelial Cell Cancelled 09/05/17 15:53 Calcium Oxalate Crystal Cancelled 09/05/17 15:53 Cystine Crystals Cancelled 09/05/17 15:53 Uric Acid Crystals Cancelled 09/05/17 15:53 Triple Phos Crystals Cancelled 09/05/17 15:53 Tyrosine Crystals Cancelled 09/05/17 15:53 Other Crystals Cancelled 09/05/17 15:53 Amorphous Sediment Cancelled 09/05/17 15:53 Urine Bacteria Negative /HPF (NEGATIVE) 09/09/17 15:11 Hyaline Casts Cancelled 09/05/17 15:53 Granular Casts Cancelled 09/05/17 15:53 Fine Granular Casts Cancelled 09/05/17 15:53 Coarse Granular Casts Cancelled 09/05/17 15:53 WBC Casts Cancelled 09/05/17 15:53 Other Casts Cancelled 09/05/17 15:53 Urine Mucus Cancelled 09/05/17 15:53 Urine Trichomonas Cancelled 09/05/17 15:53 Urine Yeast Cancelled 09/05/17 15:53 Urine Sperm Cancelled 09/05/17 15:53 Ur Culture Indicated? No/not indicated 09/09/17 15:11 Micro UA Comment Unable to perform (-) 09/05/17 16:19 H. pylori IgG Antibody Positive (NEGATIVE) A 09/05/17 15:38 Tissue Pathology To follow 09/09/17 15:24 - Assessment and Plan 1: PO laparoscopy . exploratory laparatomy and cholecystectomy for acute and chronic cholecystitis. Gallstone pancreatitis. obesity . will d/c NGT and Stone ..start on clear liquid .. - Problem Patient Problems: Patient Problems Abdominal pain (Acute) R10.9 Acute cholecystitis (Acute) K81.0 Acute pancreatitis (Acute) K85.90 Hypokalemia (Acute) E87.6 Hyponatremia (Acute) E87.1
[2017-09-10] MEDS ORDERED: DEPAKOTE D.R. TAB PO ONE ×2 (08:43→20:13)
[2017-09-10] MEDS: PATIENT'S HOME MEDICATION PO SCH (08:48)
[2017-09-10] MEDS: MILK OF MAGNESIA PO SCH ×2 (08:48→20:24)
[2017-09-10] MEDS: HALDOL PO SCH ×2 (08:48→21:19)
[2017-09-10] MEDS: DEPAKOTE D.R. TAB PO SCH ×2 (08:48→21:06)
[2017-09-10] MEDS: COLACE CAP 100 MG PO SCH ×2 (08:48→21:06)
[2017-09-10] MEDS: LEVAQUIN PREMIX IV 500 MG 500 MG/100 ML BAG IV SCH (08:56)
[2017-09-10] MEDS: COGENTIN TAB 1 MG PO SCH ×2 (08:56→21:06)
[2017-09-10 11:42] VITALS: BMI 32.6
[2017-09-11] MEDS: D5 1/2 NS 1000 ML 1,000 ML IV SCH ×3 (00:41→17:38)
[2017-09-11 06:42] LABS: BASOPHILS % (AUTO) 0.5 % (0.2-1.0); EOSINOPHILS # (AUTO) 0.1 x10^3/uL (0.0-0.2); EOSINOPHILS % (AUTO) 1.1 % (0.9-2.9); HEMATOCRIT 28.6 % (36.0-47.0); HEMOGLOBIN 9.9 g/dL (12.0-16.0); LYMPHOCYTES # (AUTO) 1.1 X10^3/uL (1.3-2.9); LYMPHOCYTES % (AUTO) 22.8 % (21.0-51.0); MEAN CORPUSCULAR HEMOGLOBIN 30.2 pg (27.0-34.0); MEAN CORPUSCULAR HGB CONC 34.7 g/dL (33.0-35.0); MEAN PLATELET VOLUME 7.5 fL (7.4-11.0); MONOCYTES # (AUTO) 0.3 x10^3/uL (0.3-0.8); NEUTROPHILS # (AUTO) 3.4 x10^3/uL (2.2-4.8); NEUTROPHILS % (AUTO) 68.6 % (42.0-75.0); PLATELET COUNT 136 X10^3/uL (150.0-450.0); RED BLOOD COUNT 3.29 X10^6/uL (3.5-5.4); RED CELL DISTRIBUTION WIDTH 14.5 % (11.6-16.5)
[2017-09-11 07:00] LABS: ALANINE AMINOTRANSFERASE 79 Units/L (12-78); ALKALINE PHOSPHATASE 115 Units/L (46-116); ASPARTATE AMINO TRANSFERASE 44 Units/L (15-37); BLOOD UREA NITROGEN 6 mg/dL (7-18); CARBON DIOXIDE 28.6 mmol/L (21-32); CHLORIDE 104 mmol/L (98-107); COR CA(FOR HYPOALB) 9.6 mg/dL (8.5-10.1); COR NA(FOR HYPERGLY) 139 mmol/L (136-145); CREATININE 0.48 mg/dL (0.55-1.02); SODIUM 138 mmol/L (136-145); TOTAL PROTEIN 5.5 g/dL (6.4-8.2); eGFR BLACK RACES > 60 (>60); eGFR NON BLACK RACES > 60 (>60)
[2017-09-11] MEDS ORDERED: DEPAKOTE D.R. TAB PO ONE ×2 (09:20→19:48)
[2017-09-11] MEDS: DEPAKOTE D.R. TAB PO SCH ×2 (09:33→20:03)
[2017-09-11] MEDS: PATIENT'S HOME MEDICATION PO SCH (09:33)
[2017-09-11] MEDS: COLACE CAP 100 MG PO SCH ×2 (09:33→20:02)
[2017-09-11] MEDS: MILK OF MAGNESIA PO SCH ×2 (09:33→20:03)
[2017-09-11] MEDS: HALDOL PO SCH ×2 (09:33→20:03)
[2017-09-11] MEDS: COGENTIN TAB 1 MG PO SCH ×2 (09:33→20:03)
[2017-09-11] MEDS: LEVAQUIN PREMIX IV 500 MG 500 MG/100 ML BAG IV SCH (09:34)
[2017-09-11] MEDS: PERCOCET TAB 5/325 MG PO PRN ×2 (12:15→19:56)
--- NOTE | 2017-09-11 16:45 | DR.PROGNOT ---
Hospital Progress Notes - Progress Note for Day of: Progress Note Date: 09/11/17 - Chief Complaint Chief Complaint: PO cholecystectomy day 2. moderate incisional pain . no nausea or vomiting , good urine out put. Bilirubin and LFT almost WNL. minimal drainage in EMMA .. - Past Medical Family Social History Past Med/Fam/Surg Hx: No changes since H&P Allergies: Allergies aspirin Allergy (Verified 05/08/17 19:17) - Review Of Systems ROS: No change since H&P - Vital Signs Vital Signs: Temperature 98.9 F Pulse Rate [Left Brachial] 85 Pulse Rate [Left] 100 Pulse Rate 100 Respiratory Rate 25 Blood Pressure [Left Arm] 100/58 Blood Pressure [Right Arm] 104/65 Blood Pressure 164/82 O2 Sat by Pulse Oximetry 97 - Physical Exam Oriented: Normal Eyes: Normal Ear: Normal Nose: Normal Throat: Normal Respiratory: Normal Cardiovascular: Normal : Normal GI:Auscultation: Normal GI:Palpation: Normal GI: Tenderness: RUQ, Epigastric, Other (dressing was changed and EMMA was removed .. no wound infection .) Skin: Normal Musculoskeletal: Back:Thoracic Psychiatric: Anxiety Mood Description: Calm Affect: Anxious Speech Pattern: Clear, Appropriate - Laboratory and Diagnostics Result Diagrams: 09/11/17 06:00 09/11/17 06:00 Labs: 09/05/17 16:19 Urine,Clean Catch Urine Culture - Final Laboratory WBC 5.0 X10^3/uL (3.6-10.0) 09/11/17 06:00 RBC 3.29 X10^6/uL (3.5-5.4) L 09/11/17 06:00 Hgb 9.9 g/dL (12.0-16.0) L D 09/11/17 06:00 Hct 28.6 % (36.0-47.0) L 09/11/17 06:00 MCV 87.0 fL (80.0-100.0) 09/11/17 06:00 MCH 30.2 pg (27.0-34.0) 09/11/17 06:00 MCHC 34.7 g/dL (33.0-35.0) 09/11/17 06:00 RDW 14.5 % (11.6-16.5) 09/11/17 06:00 Plt Count 136 X10^3/uL (150.0-450.0) L 09/11/17 06:00 Plt Count Comment Cancelled 09/11/17 06:00 MPV 7.5 fL (7.4-11.0) 09/11/17 06:00 Neut % 68.6 % (42.0-75.0) 09/11/17 06:00 Lymph % 22.8 % (21.0-51.0) 09/11/17 06:00 [place] % 7.0 % (0.0-13.0) 09/11/17 06:00 Eos % 1.1 % (0.9-2.9) 09/11/17 06:00 Baso % 0.5 % (0.2-1.0) 09/11/17 06:00 Neut # 3.4 x10^3/uL (2.2-4.8) 09/11/17 06:00 Lymph # 1.1 X10^3/uL (1.3-2.9) L 09/11/17 06:00 [place] # 0.3 x10^3/uL (0.3-0.8) 09/11/17 06:00 Eos # 0.1 x10^3/uL (0.0-0.2) 09/11/17 06:00 Baso # 0.0 X10^3/uL (0.0-0.1) 09/11/17 06:00 Absolute Nucleated RBC 0.1 /100WBC 09/11/17 06:00 Total Counted Cancelled 09/11/17 06:00 Neutrophils % (Manual) Cancelled 09/11/17 06:00 Band Neutrophils % Cancelled 09/11/17 06:00 Lymphocytes % (Manual) Cancelled 09/11/17 06:00 Monocytes % (Manual) Cancelled 09/11/17 06:00 Eosinophils % (Manual) Cancelled 09/11/17 06:00 Basophils % (Manual) Cancelled 09/11/17 06:00 Metamyelocytes % Cancelled 09/11/17 06:00 Myelocytes % Cancelled 09/11/17 06:00 Promyelocytes % Cancelled 09/11/17 06:00 Nucleated RBCs Cancelled 09/11/17 06:00 Atypical Lymphocytes Cancelled 09/11/17 06:00 Blast Cells Cancelled 09/11/17 06:00 Smudge Cells Cancelled 09/11/17 06:00 Toxic Granulation Cancelled 09/11/17 06:00 Dohle Bodies Cancelled 09/11/17 06:00 [place] Rods Cancelled 09/11/17 06:00 Plt Clumps, EDTA Cancelled 09/11/17 06:00 Giant Platelets Cancelled 09/11/17 06:00 Plt Morphology Comment Cancelled 09/11/17 06:00 RBC Morphology Cancelled 09/11/17 06:00 Dimorphic RBCs Cancelled 09/11/17 06:00 Polychromasia Cancelled 09/11/17 06:00 Hypochromasia Cancelled 09/11/17 06:00 Poikilocytosis Cancelled 09/11/17 06:00 Basophilic Stippling Cancelled 09/11/17 06:00 Anisocytosis Cancelled 09/11/17 06:00 Microcytosis Cancelled 09/11/17 06:00 Macrocytosis Cancelled 09/11/17 06:00 Spherocytes Cancelled 09/11/17 06:00 Pappenheimer Bodies Cancelled 09/11/17 06:00 Sickle Cells Cancelled 09/11/17 06:00 Target Cells Cancelled 09/11/17 06:00 Tear Drop Cells Cancelled 09/11/17 06:00 Ovalocytes Cancelled 09/11/17 06:00 Stomatocytes Cancelled 09/11/17 06:00 Helmet Cells Cancelled 09/11/17 06:00 [place] Bodies Cancelled 09/11/17 06:00 [place] Rings Cancelled 09/11/17 06:00 [place] Cells Cancelled 09/11/17 06:00 Crenated Cell Cancelled 09/11/17 06:00 Acanthocytes (Spur) Cancelled 09/11/17 06:00 Rouleaux Cancelled 09/11/17 06:00 Schistocytes Cancelled 09/11/17 06:00 Sodium 138 mmol/L (136-145) 09/11/17 06:00 Corrected Sodium 139 mmol/L (136-145) 09/11/17 06:00 Potassium 3.5 mmol/L (3.5-5.1) 09/11/17 06:00 Chloride 104 mmol/L (98-107) 09/11/17 06:00 Carbon Dioxide 28.6 mmol/L (21-32) 09/11/17 06:00 BUN 6 mg/dL (7-18) L 09/11/17 06:00 Creatinine 0.48 mg/dL (0.55-1.02) L 09/11/17 06:00 Est GFR (MDRD) Af Amer > 60 (>60) 09/11/17 06:00 Est GFR (MDRD) Non-Af > 60 (>60) 09/11/17 06:00 Glucose 126 mg/dL (65-99) H 09/11/17 06:00 Calcium 8.0 mg/dL (8.5-10.1) L 09/11/17 06:00 Corrected Calcium 9.6 mg/dL (8.5-10.1) 09/11/17 06:00 Magnesium 2.2 mg/dL (1.7-2.9) 09/10/17 05:54 Total Bilirubin 0.90 mg/dL (0.2-1.0) 09/11/17 06:00 AST 44 Units/L (15-37) H 09/11/17 06:00 ALT 79 Units/L (12-78) H 09/11/17 06:00 Alkaline Phosphatase 115 Units/L (46-116) 09/11/17 06:00 Total Protein 5.5 g/dL (6.4-8.2) L 09/11/17 06:00 Albumin 2.0 g/dL (3.4-5.0) L 09/11/17 06:00 Globulin 3.5 g/dL (2.5-4.5) 09/11/17 06:00 Albumin/Globulin Ratio 0.6 Ratio (1.1-2.1) L 09/11/17 06:00 Amylase 70 Units/L (25-115) 09/08/17 04:45 Lipase 276 Units/L (73-393) 09/08/17 04:45 Specimen Type Catherized urine 09/09/17 15:11 Urine Color Yellow (YELLOW) 09/09/17 15:11 Urine Appearance Clear (CLEAR) 09/09/17 15:11 Urine pH 7.0 (5.0 - 8.0) 09/09/17 15:11 Ur Specific [place] 1.010 (1.000-1.030) 09/09/17 15:11 Urine Protein 1+ (NEGATIVE) 09/09/17 15:11 Urine Glucose (UA) Negative (NEGATIVE) 09/09/17 15:11 Urine Ketones 1+ (NEGATIVE) 09/09/17 15:11 Urine Occult Blood Negative (NEGATIVE) 09/09/17 15:11 Urine Nitrite Negative (NEGATIVE) 09/09/17 15:11 Urine Bilirubin Negative (NEGATIVE) 09/09/17 15:11 Urine Urobilinogen Normal (NORMAL) 09/09/17 15:11 Ur Leukocyte Esterase Negative (NEGATIVE) 09/09/17 15:11 Urine RBC 0-2 /HPF (NONE SEEN) 09/09/17 15:11 Urine WBC None seen /HPF (NONE SEEN) 09/09/17 15:11 Ur Squamous Epith Cells Negative /HPF (NEGATIVE) 09/09/17 15:11 Ur Transition Epith Cell Cancelled 09/05/17 15:53 Ur Renal Epithelial Cell Cancelled 09/05/17 15:53 Calcium Oxalate Crystal Cancelled 09/05/17 15:53 Cystine Crystals Cancelled 09/05/17 15:53 Uric Acid Crystals Cancelled 09/05/17 15:53 Triple Phos Crystals Cancelled 09/05/17 15:53 Tyrosine Crystals Cancelled 09/05/17 15:53 Other Crystals Cancelled 09/05/17 15:53 Amorphous Sediment Cancelled 09/05/17 15:53 Urine Bacteria Negative /HPF (NEGATIVE) 09/09/17 15:11 Hyaline Casts Cancelled 09/05/17 15:53 Granular Casts Cancelled 09/05/17 15:53 Fine Granular Casts Cancelled 09/05/17 15:53 Coarse Granular Casts Cancelled 09/05/17 15:53 WBC Casts Cancelled 09/05/17 15:53 Other Casts Cancelled 09/05/17 15:53 Urine Mucus Cancelled 09/05/17 15:53 Urine Trichomonas Cancelled 09/05/17 15:53 Urine Yeast Cancelled 09/05/17 15:53 Urine Sperm Cancelled 09/05/17 15:53 Ur Culture Indicated? No/not indicated 09/09/17 15:11 Micro UA Comment Unable to perform (-) 09/05/17 16:19 H. pylori IgG Antibody Positive (NEGATIVE) A 09/05/17 15:38 Tissue Pathology To follow 09/09/17 15:24 - Assessment and Plan 1: PO laparoscopy . exploratory laparatomy and cholecystectomy for acute and chronic cholecystitis. Gallstone pancreatitis. obesity . advance diet and PO care . discharge in am - Problem Patient Problems: Patient Problems Abdominal pain (Acute) R10.9 Acute cholecystitis (Acute) K81.0 Acute pancreatitis (Acute) K85.90 Hypokalemia (Acute) E87.6 Hyponatremia (Acute) E87.1
[2017-09-11] MEDS: PEPCID 20 MG IV PREMIX* 20 MG/50 ML BAG IV PRN (20:02)
[2017-09-11 21:29] LABS: ALANINE AMINOTRANSFERASE 109 Units/L (12-78); ALBUMIN 2.1 g/dL (3.4-5.0); ALKALINE PHOSPHATASE 435 Units/L (46-116); ASPARTATE AMINO TRANSFERASE 103 Units/L (15-37); BLOOD UREA NITROGEN 6 mg/dL (7-18); CALCIUM 8.7 mg/dL (8.5-10.1); CARBON DIOXIDE 31.2 mmol/L (21-32); CHLORIDE 103 mmol/L (98-107); COR CA(FOR HYPOALB) 10.2 mg/dL (8.5-10.1); COR NA(FOR HYPERGLY) 140 mmol/L (136-145); CREATININE 0.62 mg/dL (0.55-1.02); SODIUM 139 mmol/L (136-145); TOTAL PROTEIN 5.9 g/dL (6.4-8.2); eGFR BLACK RACES > 60 (>60); eGFR NON BLACK RACES > 60 (>60)
[2017-09-12] MEDS: PERCOCET TAB 5/325 MG PO PRN ×3 (01:07→17:44)
[2017-09-12] MEDS: D5 1/2 NS 1000 ML 1,000 ML IV SCH ×3 (04:55→17:44)
[2017-09-12 06:07] LABS: BASOPHILS % (AUTO) 0.3 % (0.2-1.0); EOSINOPHILS # (AUTO) 0.1 x10^3/uL (0.0-0.2); EOSINOPHILS % (AUTO) 2.8 % (0.9-2.9); HEMATOCRIT 30.5 % (36.0-47.0); HEMOGLOBIN 10.6 g/dL (12.0-16.0); LYMPHOCYTES % (AUTO) 24.5 % (21.0-51.0); MEAN CORPUSCULAR HEMOGLOBIN 30.2 pg (27.0-34.0); MEAN CORPUSCULAR HGB CONC 34.8 g/dL (33.0-35.0); MEAN CORPUSCULAR VOLUME 86.7 fL (80.0-100.0); MEAN PLATELET VOLUME 7.2 fL (7.4-11.0); MONOCYTES # (AUTO) 0.3 x10^3/uL (0.3-0.8); MONOCYTES % (AUTO) 6.6 % (0.0-13.0); NEUTROPHILS # (AUTO) 2.7 x10^3/uL (2.2-4.8); NEUTROPHILS % (AUTO) 65.8 % (42.0-75.0); PLATELET COUNT 148 X10^3/uL (150.0-450.0); RED BLOOD COUNT 3.52 X10^6/uL (3.5-5.4); RED CELL DISTRIBUTION WIDTH 14.2 % (11.6-16.5); WHITE BLOOD COUNT 4.1 X10^3/uL (3.6-10.0)
[2017-09-12 08:46] LABS: AMYLASE 96 Units/L (25-115); LIPASE 270 Units/L (73-393)
[2017-09-12] MEDS ORDERED: DEPAKOTE D.R. TAB PO ONE ×2 (09:10→21:25)
[2017-09-12] MEDS: DEPAKOTE D.R. TAB PO SCH ×2 (09:38→21:51)
[2017-09-12] MEDS: COGENTIN TAB 1 MG PO SCH ×2 (09:38→21:52)
[2017-09-12] MEDS: HALDOL PO SCH ×2 (09:38→21:52)
[2017-09-12] MEDS: COLACE CAP 100 MG PO SCH ×2 (09:38→21:50)
[2017-09-12] MEDS: PATIENT'S HOME MEDICATION PO SCH (09:38)
[2017-09-12] MEDS: MILK OF MAGNESIA PO SCH ×2 (09:38→21:50)
[2017-09-12] MEDS: LEVAQUIN PREMIX IV 500 MG 500 MG/100 ML BAG IV SCH (09:39)
[2017-09-12] MEDS: PEPCID 20 MG IV PREMIX* 20 MG/50 ML BAG IV PRN (17:45)
[2017-09-13 06:49] LABS: BASOPHILS % (AUTO) 0.6 % (0.2-1.0); EOSINOPHILS # (AUTO) 0.1 x10^3/uL (0.0-0.2); EOSINOPHILS % (AUTO) 2.2 % (0.9-2.9); HEMOGLOBIN 10.8 g/dL (12.0-16.0); LYMPHOCYTES # (AUTO) 1.3 X10^3/uL (1.3-2.9); LYMPHOCYTES % (AUTO) 27.3 % (21.0-51.0); MEAN CORPUSCULAR HEMOGLOBIN 30.2 pg (27.0-34.0); MEAN CORPUSCULAR HGB CONC 34.7 g/dL (33.0-35.0); MEAN CORPUSCULAR VOLUME 86.9 fL (80.0-100.0); MEAN PLATELET VOLUME 7.3 fL (7.4-11.0); MONOCYTES # (AUTO) 0.4 x10^3/uL (0.3-0.8); MONOCYTES % (AUTO) 7.9 % (0.0-13.0); NEUTROPHILS # (AUTO) 2.9 x10^3/uL (2.2-4.8); PLATELET COUNT 189 X10^3/uL (150.0-450.0); RED BLOOD COUNT 3.57 X10^6/uL (3.5-5.4); RED CELL DISTRIBUTION WIDTH 14.1 % (11.6-16.5); WHITE BLOOD COUNT 4.7 X10^3/uL (3.6-10.0)
[2017-09-13 07:28] LABS: ALANINE AMINOTRANSFERASE 64 Units/L (12-78); ALBUMIN 2.2 g/dL (3.4-5.0); ALKALINE PHOSPHATASE 272 Units/L (46-116); ASPARTATE AMINO TRANSFERASE 27 Units/L (15-37); BLOOD UREA NITROGEN 7 mg/dL (7-18); CALCIUM 8.3 mg/dL (8.5-10.1); CHLORIDE 104 mmol/L (98-107); COR CA(FOR HYPOALB) 9.7 mg/dL (8.5-10.1); CREATININE 0.51 mg/dL (0.55-1.02); SODIUM 140 mmol/L (136-145); TOTAL PROTEIN 6.2 g/dL (6.4-8.2); eGFR BLACK RACES > 60 (>60); eGFR NON BLACK RACES > 60 (>60)
[2017-09-13] MEDS ORDERED: DEPAKOTE D.R. TAB PO ONE (08:53)
[2017-09-13] MEDS: COLACE CAP 100 MG PO SCH (09:05)
[2017-09-13] MEDS: DEPAKOTE D.R. TAB PO SCH (09:05)
[2017-09-13] MEDS: LEVAQUIN PREMIX IV 500 MG 500 MG/100 ML BAG IV SCH (09:05)
[2017-09-13] MEDS: COGENTIN TAB 1 MG PO SCH (09:06)
[2017-09-13] MEDS: HALDOL PO SCH (09:07)
[2017-09-13] MEDS: PATIENT'S HOME MEDICATION PO SCH (09:07)
[2017-09-13] MEDS: D5 1/2 NS 1000 ML 1,000 ML IV SCH (09:08)
[2017-09-13] MEDS: MILK OF MAGNESIA PO SCH (09:08)
--- NOTE | 2017-09-13 10:21 | DR.PROGNOT ---
Hospital Progress Notes - Progress Note for Day of: Progress Note Date: 09/13/17 - Chief Complaint Chief Complaint: PO cholecystectomy. moderate incisional pain . no nausea or vomiting , good urine out put. Bilirubin and LFT WNL except alk phos. tolerating diet and afebrile .. will follow in one week . - Past Medical Family Social History Past Med/Fam/Surg Hx: No changes since H&P Allergies: Allergies aspirin Allergy (Verified 05/08/17 19:17) - Review Of Systems ROS: No change since H&P - Vital Signs Vital Signs: Temperature 97.8 F Pulse Rate [Left Brachial] 79 Pulse Rate [Left] 100 Pulse Rate 100 Respiratory Rate 21 Blood Pressure [Left Arm] 128/80 Blood Pressure [Right Arm] 104/65 Blood Pressure 164/82 O2 Sat by Pulse Oximetry 97 - Physical Exam Oriented: Normal Eyes: Normal Ear: Normal Nose: Normal Throat: Normal Respiratory: Normal Cardiovascular: Normal : Normal GI:Auscultation: Normal GI:Palpation: Normal GI: Tenderness: RUQ, Epigastric, Other (dressing was changed and EMMA was removed .. no wound infection .) Skin: Normal Musculoskeletal: Back:Thoracic Psychiatric: Anxiety Mood Description: Calm Affect: Anxious Speech Pattern: Clear, Appropriate - Laboratory and Diagnostics Result Diagrams: 09/13/17 05:46 09/13/17 05:46 Labs: 09/05/17 16:19 Urine,Clean Catch Urine Culture - Final Laboratory WBC 4.7 X10^3/uL (3.6-10.0) 09/13/17 05:46 RBC 3.57 X10^6/uL (3.5-5.4) 09/13/17 05:46 Hgb 10.8 g/dL (12.0-16.0) L 09/13/17 05:46 Hct 31.0 % (36.0-47.0) L 09/13/17 05:46 MCV 86.9 fL (80.0-100.0) 09/13/17 05:46 MCH 30.2 pg (27.0-34.0) 09/13/17 05:46 MCHC 34.7 g/dL (33.0-35.0) 09/13/17 05:46 RDW 14.1 % (11.6-16.5) 09/13/17 05:46 Plt Count 189 X10^3/uL (150.0-450.0) 09/13/17 05:46 Plt Count Comment Cancelled 09/11/17 06:00 MPV 7.3 fL (7.4-11.0) L 09/13/17 05:46 Neut % 62.0 % (42.0-75.0) 09/13/17 05:46 Lymph % 27.3 % (21.0-51.0) 09/13/17 05:46 [place] % 7.9 % (0.0-13.0) 09/13/17 05:46 Eos % 2.2 % (0.9-2.9) 09/13/17 05:46 Baso % 0.6 % (0.2-1.0) 09/13/17 05:46 Neut # 2.9 x10^3/uL (2.2-4.8) 09/13/17 05:46 Lymph # 1.3 X10^3/uL (1.3-2.9) 09/13/17 05:46 [place] # 0.4 x10^3/uL (0.3-0.8) 09/13/17 05:46 Eos # 0.1 x10^3/uL (0.0-0.2) 09/13/17 05:46 Baso # 0.0 X10^3/uL (0.0-0.1) 09/13/17 05:46 Absolute Nucleated RBC 0.0 /100WBC 09/13/17 05:46 Total Counted Cancelled 09/11/17 06:00 Neutrophils % (Manual) Cancelled 09/11/17 06:00 Band Neutrophils % Cancelled 09/11/17 06:00 Lymphocytes % (Manual) Cancelled 09/11/17 06:00 Monocytes % (Manual) Cancelled 09/11/17 06:00 Eosinophils % (Manual) Cancelled 09/11/17 06:00 Basophils % (Manual) Cancelled 09/11/17 06:00 Metamyelocytes % Cancelled 09/11/17 06:00 Myelocytes % Cancelled 09/11/17 06:00 Promyelocytes % Cancelled 09/11/17 06:00 Nucleated RBCs Cancelled 09/11/17 06:00 Atypical Lymphocytes Cancelled 09/11/17 06:00 Blast Cells Cancelled 09/11/17 06:00 Smudge Cells Cancelled 09/11/17 06:00 Toxic Granulation Cancelled 09/11/17 06:00 Dohle Bodies Cancelled 09/11/17 06:00 [place] Rods Cancelled 09/11/17 06:00 Plt Clumps, EDTA Cancelled 09/11/17 06:00 Giant Platelets Cancelled 09/11/17 06:00 Plt Morphology Comment Cancelled 09/11/17 06:00 RBC Morphology Cancelled 09/11/17 06:00 Dimorphic RBCs Cancelled 09/11/17 06:00 Polychromasia Cancelled 09/11/17 06:00 Hypochromasia Cancelled 09/11/17 06:00 Poikilocytosis Cancelled 09/11/17 06:00 Basophilic Stippling Cancelled 09/11/17 06:00 Anisocytosis Cancelled 09/11/17 06:00 Microcytosis Cancelled 09/11/17 06:00 Macrocytosis Cancelled 09/11/17 06:00 Spherocytes Cancelled 09/11/17 06:00 Pappenheimer Bodies Cancelled 09/11/17 06:00 Sickle Cells Cancelled 09/11/17 06:00 Target Cells Cancelled 09/11/17 06:00 Tear Drop Cells Cancelled 09/11/17 06:00 Ovalocytes Cancelled 09/11/17 06:00 Stomatocytes Cancelled 09/11/17 06:00 Helmet Cells Cancelled 09/11/17 06:00 [place] Bodies Cancelled 09/11/17 06:00 [place] Rings Cancelled 09/11/17 06:00 [place] Cells Cancelled 09/11/17 06:00 Crenated Cell Cancelled 09/11/17 06:00 Acanthocytes (Spur) Cancelled 09/11/17 06:00 Rouleaux Cancelled 09/11/17 06:00 Schistocytes Cancelled 09/11/17 06:00 Sodium 140 mmol/L (136-145) 09/13/17 05:46 Corrected Sodium TNP 09/13/17 05:46 Potassium 3.6 mmol/L (3.5-5.1) 09/13/17 05:46 Chloride 104 mmol/L (98-107) 09/13/17 05:46 Carbon Dioxide 28.0 mmol/L (21-32) 09/13/17 05:46 BUN 7 mg/dL (7-18) 09/13/17 05:46 Creatinine 0.51 mg/dL (0.55-1.02) L 09/13/17 05:46 Est GFR (MDRD) Af Amer > 60 (>60) 09/13/17 05:46 Est GFR (MDRD) Non-Af > 60 (>60) 09/13/17 05:46 Glucose 109 mg/dL (65-99) H 09/13/17 05:46 Calcium 8.3 mg/dL (8.5-10.1) L 09/13/17 05:46 Corrected Calcium 9.7 mg/dL (8.5-10.1) 09/13/17 05:46 Magnesium 2.2 mg/dL (1.7-2.9) 09/10/17 05:54 Total Bilirubin 0.60 mg/dL (0.2-1.0) 09/13/17 05:46 AST 27 Units/L (15-37) 09/13/17 05:46 ALT 64 Units/L (12-78) 09/13/17 05:46 Alkaline Phosphatase 272 Units/L (46-116) H 09/13/17 05:46 Total Protein 6.2 g/dL (6.4-8.2) L 09/13/17 05:46 Albumin 2.2 g/dL (3.4-5.0) L 09/13/17 05:46 Globulin 4.0 g/dL (2.5-4.5) 09/13/17 05:46 Albumin/Globulin Ratio 0.6 Ratio (1.1-2.1) L 09/13/17 05:46 Amylase 96 Units/L (25-115) 09/12/17 05:35 Lipase 270 Units/L (73-393) 09/12/17 05:35 Specimen Type Catherized urine 09/09/17 15:11 Urine Color Yellow (YELLOW) 09/09/17 15:11 Urine Appearance Clear (CLEAR) 09/09/17 15:11 Urine pH 7.0 (5.0 - 8.0) 09/09/17 15:11 Ur Specific [place] [facility] 1.010 (1.000-1.030) 09/09/17 15:11 Urine Protein 1+ (NEGATIVE) 09/09/17 15:11 Urine Glucose (UA) Negative (NEGATIVE) 09/09/17 15:11 Urine Ketones 1+ (NEGATIVE) 09/09/17 15:11 Urine Occult Blood Negative (NEGATIVE) 09/09/17 15:11 Urine Nitrite Negative (NEGATIVE) 09/09/17 15:11 Urine Bilirubin Negative (NEGATIVE) 09/09/17 15:11 Urine Urobilinogen Normal (NORMAL) 09/09/17 15:11 Ur Leukocyte Esterase Negative (NEGATIVE) 09/09/17 15:11 Urine RBC 0-2 /HPF (NONE SEEN) 09/09/17 15:11 Urine WBC None seen /HPF (NONE SEEN) 09/09/17 15:11 Ur Squamous Epith Cells Negative /HPF (NEGATIVE) 09/09/17 15:11 Ur Transition Epith Cell Cancelled 09/05/17 15:53 Ur Renal Epithelial Cell Cancelled 09/05/17 15:53 Calcium Oxalate Crystal Cancelled 09/05/17 15:53 Cystine Crystals Cancelled 09/05/17 15:53 Uric Acid Crystals Cancelled 09/05/17 15:53 Triple Phos Crystals Cancelled 09/05/17 15:53 Tyrosine Crystals Cancelled 09/05/17 15:53 Other Crystals Cancelled 09/05/17 15:53 Amorphous Sediment Cancelled 09/05/17 15:53 Urine Bacteria Negative /HPF (NEGATIVE) 09/09/17 15:11 Hyaline Casts Cancelled 09/05/17 15:53 Granular Casts Cancelled 09/05/17 15:53 Fine Granular Casts Cancelled 09/05/17 15:53 Coarse Granular Casts Cancelled 09/05/17 15:53 WBC Casts Cancelled 09/05/17 15:53 Other Casts Cancelled 09/05/17 15:53 Urine Mucus Cancelled 09/05/17 15:53 Urine Trichomonas Cancelled 09/05/17 15:53 Urine Yeast Cancelled 09/05/17 15:53 Urine Sperm Cancelled 09/05/17 15:53 Ur Culture Indicated? No/not indicated 09/09/17 15:11 Micro UA Comment Unable to perform (-) 09/05/17 16:19 H. pylori IgG Antibody Positive (NEGATIVE) A 09/05/17 15:38 Tissue Pathology To follow 09/09/17 15:24 - Assessment and Plan 1: PO laparoscopy . exploratory laparatomy and cholecystectomy for acute and chronic cholecystitis. Gallstone pancreatitis. obesity . anxiety and depression . discharge in am 2: light activities , low fat diet , change dressing daily and F/U in one week. - Problem Patient Problems: Patient Problems Abdominal pain (Acute) R10.9 Acute cholecystitis (Acute) K81.0 Acute pancreatitis (Acute) K85.90 Hypokalemia (Acute) E87.6 Hyponatremia (Acute) E87.1
[2017-09-13 11:11] VITALS: BP 133/70
== END 2017-09-13 12:00 | disposition home health service (06) | DRG 356 ==
LOC: ER 14:34 → MED/SURG 17:04 → ICU 09-09 15:46
PROVIDERS: ADMIT Internal Medicine; ATTEND Internal Medicine
PROC: 0F9 Hepatobiliary System and Pancreas, Drainage (ICD-10-PCS; 2017-09-09)
PROC: 3E0234Z Introduction of Serum, Toxoid and Vaccine into Muscle, Percutaneous Approach (ICD-10-PCS; 2017-09-09)
PROC: 0FT40ZZ Resection of Gallbladder, Open Approach (ICD-10-PCS; principal; 2017-09-09 12:00)
PROC: 0FT44ZZ Resection of Gallbladder, Percutaneous Endoscopic Approach (ICD-10-PCS; 2017-09-09 12:00)
DX: R10.84 Generalized abdominal pain (principal); K85.80 Other acute pancreatitis without necrosis or infection; E87.1 Hypo-osmolality and hyponatremia; E87.6 Hypokalemia; R10.10 Upper abdominal pain, unspecified; K80.18 Calculus of gallbladder with other cholecystitis without obstruction; I10 Essential (primary) hypertension; B96.81 Helicobacter pylori [H. pylori] as the cause of diseases classified elsewhere; R94.5 Abnormal results of liver function studies; R11.2 Nausea with vomiting, unspecified; I25.10 Atherosclerotic heart disease of native coronary artery without angina pectoris; E11.65 Type 2 diabetes mellitus with hyperglycemia; K76.0 Fatty (change of) liver, not elsewhere classified; E66.09 Other obesity due to excess calories; R26.89 Other abnormalities of gait and mobility; Z23 Encounter for immunization
CPT/HCPCS: 36415; 71045; 74022; 74176; 76705; 80053; 81001; 81015; 82150; 83690; 83735; 85025; 86677; 87086; 88304; 88307; 90686; 93005; 93010; 94760; 96365; 97535; 99284; A4216; A4222; S0028; J0330; J0690; J1100; J1170; J1200; J1956; J2001; J2060; J2175; J2250; J2270; J2405; J2710; J3010; J3480; J3490; J7042; J7120

== ENCOUNTER 2021-04-07 11:10 | Inpatient (IN) ==
[2021-04-07] MEDS ORDERED: ZOFRAN INJ 4 MG VIAL IVP PRN (12:45)
[2021-04-07] MEDS ORDERED: NORCO 5/325 MG TAB PO PRN (12:47)
--- NOTE | 2021-04-07 12:58 | DR.H&P ---
H&P - History & Physical for Day of: H&P Date: 04/07/21 - Chief Complaint Chief Complaint: "LEGS WONT WORK" LEG WEAKNESS, SWELLING AND LOW POTASSIUM - History of Present Illness History of Present Illness: PT IS 60 WF DIRECT ADMIT FROM DR MANCUSO OFFICE WITH SEVERE LOWER EXTREMITY WEAKNESS. PT WAS COVID +02/21/21. PT DENIES AND FEVER, CCC AT THIS TIME. PT FAMILY CANNOT CARE FOR HER AT THIS TIME DUE TO PTS EXTREME LEG WEAKNESS AND PAIN IN LEGS WITH SWELLING. PT HAD PMH OF MENTAL HEALTH AND AR OTHERWISE NO KNOWN CARDIAC DISEASE OR DM. PT HAD HYPOKALEMIA AND WAS TREATED WITH PO POTASSIUM WITHOUT IMPROVEMENT. - Past Medical History Past Medical History: Anxiety, Arthritis - Past Surgical History Surgical History: Cholecystectomy - Family History Family Medical History: Diabetes Mellitus, Cancer, Coronary Artery Disease, Hypertension - Social History Does patient currently use any type of tobacco product: No Have you used tobacco products in the last 12 months: No Type of Tobacco Use: None Does any household member use tobacco: No Alcohol Use: None Drug Use: None Risks, benefits, and alternatives of opioids discussed: No Prescription drug monitoring program results: PDMP reviewed with concerns identified - Medications Home Medications: aspirin Allergy (Verified 05/22/19 15:15) - Review of Systems Constitutional: Weakness, Malaise Eyes: No Symptoms Reported ENT: No Symptoms Reported Respiratory: Shortness of Breath Cardiovascular: Edema Gastrointestinal: No Symptoms Reported Genitourinary: No Symptoms Reported Musculoskeletal: Leg Pain Skin: No Symptoms Reported Neurological: Weakness - Physical Exam Vital Signs: Blood Pressure [Left Arm] 124/90 Blood Pressure [Right Arm] 104/65 Blood Pressure 134/87 Oriented: Normal Eyes: Normal Ear: Normal Nose: Normal Throat: Normal Respiratory: RLL Diminished, LLL Diminished Cardiovascular: Edema : Normal Auscultation: Bowel Sounds: Normal Palpation: Normal Tenderness: Normal Skin: Decreased Turgur Musculoskeletal: Right, Left, Leg, Back:Lumbar, Tender Psychiatric: Anxiety Speech Pattern: Clear, Appropriate - Assessment/Plan (1) Rhabdomyolysis Qualifiers: Rhabdomyolysis type: non-traumatic Qualified Code(s): M62.82 - Rhabdomyolysis Status: Acute Plan: ADMIT, IV HYDRATION, STRICT I&OS. CARDIAC MONITORING. BP CONTROL, IV ATBX. CONFIRM HOME MEDICATIONS. PT FOR PATIENT (2) UTI (urinary tract infection) Qualifiers: Urinary tract infection type: acute cystitis Hematuria presence: with hematuria Qualified Code(s): N30.01 - Acute cystitis with hematuria Status: Acute (3) Leg weakness, bilateral Status: Acute (4) Pain in limb Status: Acute (5) Hypokalemia Status: Acute (6) Hyponatremia Status: Acute - Allergies Allergies/Adverse Reactions: Allergies Allergy/AdvReac Type Severity Reaction Status Date / Time aspirin Allergy Verified 05/22/19 15:15
[2021-04-07] MEDS ORDERED: ROCEPHIN VIAL 1 GRAM 1 G in NS 100 ML IV + SPIKE MINIBAG* 100 ML IV SCH (13:00)
[2021-04-07 13:16] VITALS: BMI 37.2
[2021-04-07 13:31] LABS: BASOPHILS % (AUTO) 0.7 % (0.2-1.0); EOSINOPHILS % (AUTO) 0.5 % (0.9-2.9); HEMATOCRIT 39.5 % (36.0-47.0); HEMOGLOBIN 13.5 g/dL (12.0-16.0); LYMPHOCYTES # (AUTO) 0.5 X10^3/uL (1.3-2.9); LYMPHOCYTES % (AUTO) 11.2 % (21.0-51.0); MEAN CORPUSCULAR HEMOGLOBIN 31.2 pg (27.0-34.0); MEAN CORPUSCULAR HGB CONC 34.2 g/dL (33.0-35.0); MEAN CORPUSCULAR VOLUME 91.3 fL (80.0-100.0); MEAN PLATELET VOLUME 7.5 fL (7.4-11.0); MONOCYTES # (AUTO) 0.5 x10^3/uL (0.3-0.8); MONOCYTES % (AUTO) 9.3 % (0.0-13.0); NEUTROPHILS # (AUTO) 3.8 x10^3/uL (2.2-4.8); NEUTROPHILS % (AUTO) 78.3 % (42.0-75.0); PLATELET COUNT 181 X10^3/uL (150.0-450.0); RED BLOOD COUNT 4.33 X10^6/uL (3.5-5.4); RED CELL DISTRIBUTION WIDTH 15.5 % (11.6-16.5); WHITE BLOOD COUNT 4.9 X10^3/uL (3.6-10.0)
[2021-04-07 14:13] LABS: ALANINE AMINOTRANSFERASE 53 Units/L (12-78); ALBUMIN 2.4 g/dL (3.4-5.0); ALKALINE PHOSPHATASE 55 Units/L (46-116); ASPARTATE AMINO TRANSFERASE 99 Units/L (15-37); BLOOD UREA NITROGEN 13 mg/dL (7-18); CARBON DIOXIDE 23.7 mmol/L (21-32); CHLORIDE 103 mmol/L (98-107); COR CA(FOR HYPOALB) 10.3 mg/dL (8.5-10.1); COR NA(FOR HYPERGLY) 136 mmol/L (136-145); CREATININE 0.67 mg/dL (0.55-1.02); SODIUM 136 mmol/L (136-145); TOTAL PROTEIN 6.3 g/dL (6.4-8.2); TROPONIN I < 0.02 ng/mL (0-1.5); eGFR NON BLACK RACES > 60 (>60)
[2021-04-07 14:18] LABS: CREATINE KINASE MB 6.7 ng/mL (0-4.0)
[2021-04-07 14:19] LABS: CKMB % 0.6 % (<4); CREATINE KINASE 1209 Units/L (26-192)
[2021-04-07] MEDS ORDERED: ROCEPHIN VIAL 1 GRAM 1 G in NS 100 ML IV 100 ML IV SCH (14:45)
[2021-04-07] MEDS: NS 1000 ML 1,000 ML IV SCH (15:03)
[2021-04-07] MEDS: PROTONIX INJ 40 MG VIAL IVP SCH ×2 (15:04→20:18)
--- NOTE | 2021-04-07 15:09 | VAS ---
HISTORYLE EDEMA, SOBSTUDYLOWER EXT deeply VENOUS ultrasound, BILATERALCOMPARISONNoneTECHNIQUEMultiple cheema scale and color flow Doppler images of the deep venous system were obtained of the right and left lower extremity.FINDINGSThe deep venous system of the right and left lower extremities were evaluated from the level of the common femoral vein through the popliteal veins. Normal color flow and augmentation can be observed. In addition, normal compression is seen throughout the deep venous system.IMPRESSIONNegative for DVT.Electronically signed by: Joseph Mcleod (Apr 07, 2021 15:07:48)
--- NOTE | 2021-04-07 15:11 | RAD ---
HISTORYSOBSTUDYCHEST x-ray, 1 VIEWCOMPARISONReport of prior x-ray 09/06/2017, images are not availableFINDINGSThe trachea is midline. The cardiac silhouette is unremarkable .Lungs appear clear. No pneumothorax or pleural effusion is seen.No acute bony abnormality is seen.IMPRESSIONNo acute cardiopulmonary abnormality is seen.Electronically signed by: Joseph Mcleod (Apr 07, 2021 15:09:19)
[2021-04-07 16:07] LABS: BILIRUBIN,URINE NEGATIVE (NEGATIVE); BLOOD/HEMOGLOBIN,URINE 1+ (NEGATIVE); GLUCOSE, URINE NEGATIVE (NEGATIVE); KETONES,URINE NEGATIVE (NEGATIVE); LEUKOCYTE ESTERASE ,URINE 1+ (NEGATIVE); NITRITES,URINE NEGATIVE (NEGATIVE); PROTEIN,URINE 1+ (NEGATIVE); UROBILINOGEN,URINE 1+ (NORMAL)
--- NOTE | 2021-04-07 16:08 | CT ---
HISTORYELEVATED DDIMERSTUDYCTA CHESTCOMPARISONChest x-ray same dayTECHNIQUEMultiple axial images of the chest were obtained from the thoracic inlet to the upper abdomen after the administration of IV contrast. 3D reconstructions utilizing axial MIPS imaging was performed and reviewed. Dose reduction techniques including Automated Exposure Control (AEC) and adjustment of mA and kV were utilized.FINDINGSNo pneumothorax or effusion. Scattered ground-glass opacities in the bilateral lungs.No evidence of pulmonary embolism.The heart is normal in size. Moderate pericardial effusion. Coronary calcifications. Subcentimeter thyroid nodules. Likely reactive mediastinal lymph nodes.No acute osseous abnormality. Multilevel degenerative changes in the visualized spine. Likely hemangioma in the T11 vertebral body.Limited visualized portions of the upper abdomen demonstrate no acute process. Prior cholecystectomy.IMPRESSIONNo evidence of pulmonary embolism.Scattered ground-glass opacities throughout the bilateral lungs concerning for pneumonia.Moderate pericardial effusion.Electronically signed by: ELIZABETH LANDIS (Apr 07, 2021 16:07:37)
[2021-04-07 16:11] LABS: APPEARANCE,URINE SLIGHTLY HAZY (CLEAR); COLOR,URINE YELLOW (YELLOW)
[2021-04-07 16:25] LABS: BACTERIA,URINE TRACE /HPF (NEGATIVE); MUCUS,URINE FEW /HPF (NEGATIVE); SQUAMOUS EPITHELIAL CELL,UR MODERATE /HPF (NEGATIVE)
[2021-04-07] MEDS: COLACE CAP 100 MG PO SCH (21:00)
[2021-04-08] MEDS: COLACE CAP 100 MG PO SCH ×2 (01:36→21:42)
[2021-04-08] MEDS: NS 1000 ML 1,000 ML IV SCH ×2 (05:29→16:32)
[2021-04-08 06:10] LABS: BASOPHILS % (AUTO) 0.8 % (0.2-1.0); EOSINOPHILS # (AUTO) 0.1 x10^3/uL (0.0-0.2); EOSINOPHILS % (AUTO) 2.2 % (0.9-2.9); HEMATOCRIT 33.7 % (36.0-47.0); HEMOGLOBIN 11.7 g/dL (12.0-16.0); LYMPHOCYTES # (AUTO) 0.7 X10^3/uL (1.3-2.9); LYMPHOCYTES % (AUTO) 17.1 % (21.0-51.0); MEAN CORPUSCULAR HEMOGLOBIN 31.8 pg (27.0-34.0); MEAN CORPUSCULAR HGB CONC 34.7 g/dL (33.0-35.0); MEAN CORPUSCULAR VOLUME 91.6 fL (80.0-100.0); MEAN PLATELET VOLUME 7.7 fL (7.4-11.0); MONOCYTES # (AUTO) 0.4 x10^3/uL (0.3-0.8); NEUTROPHILS # (AUTO) 2.8 x10^3/uL (2.2-4.8); NEUTROPHILS % (AUTO) 69.9 % (42.0-75.0); PLATELET COUNT 174 X10^3/uL (150.0-450.0); RED BLOOD COUNT 3.68 X10^6/uL (3.5-5.4); RED CELL DISTRIBUTION WIDTH 15.8 % (11.6-16.5); WHITE BLOOD COUNT 3.9 X10^3/uL (3.6-10.0)
[2021-04-08 06:32] LABS: ALANINE AMINOTRANSFERASE 41 Units/L (12-78); ALKALINE PHOSPHATASE 45 Units/L (46-116); ASPARTATE AMINO TRANSFERASE 69 Units/L (15-37); BLOOD UREA NITROGEN 13 mg/dL (7-18); CALCIUM 8.4 mg/dL (8.5-10.1); CARBON DIOXIDE 24.8 mmol/L (21-32); CHLORIDE 106 mmol/L (98-107); COR NA(FOR HYPERGLY) 137 mmol/L (136-145); CREATININE 0.58 mg/dL (0.55-1.02); SODIUM 137 mmol/L (136-145); TOTAL PROTEIN 5.3 g/dL (6.4-8.2); eGFR NON BLACK RACES > 60 (>60)
[2021-04-08 07:54] LABS: CKMB % 0.7 % (<4); CREATINE KINASE 683 Units/L (26-192); TROPONIN I < 0.02 ng/mL (0-1.5)
[2021-04-08 07:58] LABS: CREATINE KINASE MB 4.5 ng/mL (0-4.0)
[2021-04-08] MEDS: FORTAZ or TAZICEF VIAL INJ IVP SCH ×3 (09:03→21:47)
[2021-04-08] MEDS: PROTONIX INJ 40 MG VIAL IVP SCH ×2 (09:03→21:37)
[2021-04-08] MEDS: LEVAQUIN PREMIX IV 500 MG 500 MG/100 ML BAG IV SCH (09:03)
[2021-04-08] MEDS ORDERED: COGENTIN TAB 1 MG PO SCH (10:00)
[2021-04-08] MEDS ORDERED: DEPAKOTE D.R. TAB PO SCH (11:00)
[2021-04-08] MEDS: MICRO K EXTEN CAP 10 MEQ PO SCH (15:19)
--- NOTE | 2021-04-08 16:03 | PCM.PROG ---
Progress Note - Progress Note for Day of Date of Exam: 04/08/21 - Subjective Subjective: IS A 60 YEAR OLD PATIENT OF . SHE IS BEING TREATED FOR HYPOKALEMIA, WEAKNESS, URINARY TRACT INFECTION, AND RHABDO. SHE DID HAVE COVID ABOUT A MONTH AND A HALF AGO. SHE HAS HAD SEVERE LOWER EXTREMITY WEAKNESS. TODAY, SHE IS ALERT AND ORIENTED, LYING IN BED ON MORNING ROUNDS. SHE CONTINUES WITH COMPLAINTS OF WEAKNESS. SHE ALSO REPORTS SHORTNESS OF BREATH AT TIMES. ON EXAMINATION, HEART IS REGULAR IN RATE AND RHYTHM. BILATERAL LUNGS ARE NOTED TO HAVE DIMINISHED LUNG SOUNDS THROUGHOUT. ABDOMEN IS ROUND, SOFT, AND NON-TENDER WITH NORMAL BOWEL SOUNDS NOTED IN ALL QUADRANTS. HER VITALS THIS MORNING ARE: 98.0-100-20-97%-115/73. LABS WERE OBTAINED. ABNORMAL LAB VALUES INCLUDE THE FOLLOWING: HGB 11.7, HCT 33.7, GLUCOSE 111, CALCIUM 8.4, AST 69, ALK PHOS 45, CREATINE KINASE 683, CK-MB 4.5, TOTAL PROTEIN 5.3, ALBUMIN 2.0. URINE CULTURE IS PENDING. A CHEST CTA WAS OBTAINED YESTERDAY DUE TO ELEVATED D-DIMER. IT REVEALED: No evidence of pulmonary embolism. Scattered ground-glass opacities throughout the bilateral lungs concerning for pneumonia. Moderate pericardial effusion. SHE IS CURRENTLY RECEIVING NS AT 80 ML/HR, ROCEPHIN 1G IV DAILY, PROTONIX 40MG IV BID, COLACE 100MG PO HS, NORCO 5/325MG PO Q8H PRN. TODAY, WE WILL DISCONTINUE THE ROCEPHIN AND ADD FORTAZ 1G IV Q8H AND LEVAQUIN 500MG IV DAILY. WE WILL REVIEW HER HOME MEDICATIONS AND RESUME APPROPRIATE. OTHERWISE, WE WILL FOLLOW UP WITH AM LABS AND CONTINUE TO MONITOR. TIME SPENT ON CLINICAL ASSESSMENT, REVIEWING LABS AND IMAGING, DECISION MAKING, AND DOCUMENTATION GREATER THAN 45 MINUTES. - Past Medical Family Social History Past Med/Fam/Surg Hx: No changes since H&P Allergies: Allergies aspirin Allergy (Verified 05/22/19 15:15) - Review of Systems ROS: No change since H&P - Vital Signs and I&O's Vital Signs: Temperature 97.6 F Pulse Rate [Left Brachial] 101 Respiratory Rate 20 Blood Pressure [Left Arm] 125/73 Blood Pressure [Right Arm] 140/82 Blood Pressure 134/87 O2 Sat by Pulse Oximetry 94 Intake and Output: Intake & Output 04/06/21 04/07/21 04/08/21 04/09/21 11:59 11:59 11:59 11:59 Intake Total 1072 Output Total Balance 107 / 2 - Physical Exam Oriented: Normal Eyes: Normal Ear: Normal Nose: Normal Throat: Normal Respiratory: Generalized, Diminished Cardiovascular: Edema (BLE 1+ PITTING EDEMA ) : Normal Auscultation: Bowel Sounds: Normal Palpation: Normal Tenderness: Normal Skin: Decreased Turgur Musculoskeletal: Right, Left, Leg, Back:Lumbar, Tender Psychiatric: Anxiety Affect: Normal Speech Pattern: Clear, Appropriate - Laboratory and Diagnostics Result Diagrams: 04/08/21 05:10 04/08/21 05:10 Labs: 04/07/21 15:55 Urine,Catheterized Urine Culture - Preliminary Laboratory WBC 3.9 X10^3/uL (3.6-10.0) 04/08/21 05:10 RBC 3.68 X10^6/uL (3.5-5.4) 04/08/21 05:10 Hgb 11.7 g/dL (12.0-16.0) L 04/08/21 05:10 Hct 33.7 % (36.0-47.0) L 04/08/21 05:10 MCV 91.6 fL (80.0-100.0) 04/08/21 05:10 MCH 31.8 pg (27.0-34.0) 04/08/21 05:10 MCHC 34.7 g/dL (33.0-35.0) 04/08/21 05:10 RDW 15.8 % (11.6-16.5) 04/08/21 05:10 Plt Count 174 X10^3/uL (150.0-450.0) 04/08/21 05:10 MPV 7.7 fL (7.4-11.0) 04/08/21 05:10 Neut % (Auto) 69.9 % (42.0-75.0) 04/08/21 05:10 Lymph % (Auto) 17.1 % (21.0-51.0) L 04/08/21 05:10 [place] % (Auto) 10.0 % (0.0-13.0) 04/08/21 05:10 Eos % (Auto) 2.2 % (0.9-2.9) 04/08/21 05:10 Baso % (Auto) 0.8 % (0.2-1.0) 04/08/21 05:10 Neut # (Auto) 2.8 x10^3/uL (2.2-4.8) 04/08/21 05:10 Lymph # (Auto) 0.7 X10^3/uL (1.3-2.9) L 04/08/21 05:10 [place] # (Auto) 0.4 x10^3/uL (0.3-0.8) 04/08/21 05:10 Eos # (Auto) 0.1 x10^3/uL (0.0-0.2) 04/08/21 05:10 Baso # (Auto) 0.0 X10^3/uL (0.0-0.1) 04/08/21 05:10 Absolute Nucleated RBC 0.1 /100WBC 04/08/21 05:10 D-Dimer 1.29 ug/ml (0.0-0.57) H* 04/07/21 13:20 Sodium 137 mmol/L (136-145) 04/08/21 05:10 Corrected Sodium 137 mmol/L (136-145) 04/08/21 05:10 Potassium 3.6 mmol/L (3.5-5.1) 04/08/21 05:10 Chloride 106 mmol/L (98-107) 04/08/21 05:10 Carbon Dioxide 24.8 mmol/L (21-32) 04/08/21 05:10 BUN 13 mg/dL (7-18) 04/08/21 05:10 Creatinine 0.58 mg/dL (0.55-1.02) 04/08/21 05:10 Est GFR (MDRD) Af Amer > 60 (>60) 04/08/21 05:10 Est GFR (MDRD) Non-Af > 60 (>60) 04/08/21 05:10 Glucose 111 mg/dL (65-99) H 04/08/21 05:10 Calcium 8.4 mg/dL (8.5-10.1) L 04/08/21 05:10 Corrected Calcium 10.0 mg/dL (8.5-10.1) 04/08/21 05:10 Magnesium 2.0 mg/dL (1.7-2.9) 04/07/21 13:20 Total Bilirubin 0.90 mg/dL (0.2-1.0) 04/08/21 05:10 AST 69 Units/L (15-37) H 04/08/21 05:10 ALT 41 Units/L (12-78) 04/08/21 05:10 Alkaline Phosphatase 45 Units/L (46-116) L 04/08/21 05:10 Creatine Kinase 683 Units/L (26-192) H 04/08/21 05:10 CK-MB (CK-2) 4.5 ng/mL (0-4.0) H* 04/08/21 05:10 CK/CKMB % Calc 0.7 % (<4) 04/08/21 05:10 Troponin I < 0.02 ng/mL (0-1.5) 04/08/21 05:10 Total Protein 5.3 g/dL (6.4-8.2) L 04/08/21 05:10 Albumin 2.0 g/dL (3.4-5.0) L 04/08/21 05:10 Globulin 3.3 g/dL (2.5-4.5) 04/08/21 05:10 Albumin/Globulin Ratio 0.6 Ratio (1.1-2.1) L 04/08/21 05:10 Specimen Type Catherized urine 04/07/21 15:55 Urine Color Yellow (YELLOW) 04/07/21 15:55 Urine Appearance Slightly hazy (CLEAR) 04/07/21 15:55 Urine pH 6.0 (5.0 - 8.0) 04/07/21 15:55 Ur Specific [place] 1.010 (1.000-1.030) 04/07/21 15:55 Urine Protein 1+ (NEGATIVE) 04/07/21 15:55 Urine Glucose (UA) Negative (NEGATIVE) 04/07/21 15:55 Urine Ketones Negative (NEGATIVE) 04/07/21 15:55 Urine Occult Blood 1+ (NEGATIVE) 04/07/21 15:55 Urine Nitrite Negative (NEGATIVE) 04/07/21 15:55 Urine Bilirubin Negative (NEGATIVE) 04/07/21 15:55 Urine Urobilinogen 1+ (NORMAL) 04/07/21 15:55 Ur Leukocyte Esterase 1+ (NEGATIVE) 04/07/21 15:55 Urine RBC 3-5 /HPF (0-3) A 04/07/21 15:55 Urine WBC 3-5 /HPF (0-5) 04/07/21 15:55 Ur Squamous Epith Cells Moderate /HPF (NEGATIVE) 04/07/21 15:55 Urine Bacteria Trace /HPF (NEGATIVE) 04/07/21 15:55 Urine Mucus Few /HPF (NEGATIVE) 04/07/21 15:55 Ur Culture Indicated? No/not indicated 04/07/21 15:55 SARS-CoV-2 (PCR) Negative (NEGATIVE) 04/07/21 11:26 Influenza Type A (PCR) Negative (NEGATIVE) 04/07/21 11:26 Influenza Type B (PCR) Negative (NEGATIVE) 04/07/21 11:26 RSV (PCR) Negative (NEGATIVE) 04/07/21 11:26 - Plan (1) UTI (urinary tract infection) Status: Acute Qualifiers: Urinary tract infection type: acute cystitis Hematuria presence: with hematuria Qualified Code(s): N30.01 - Acute cystitis with hematuria (2) Rhabdomyolysis Status: Acute Qualifiers: Rhabdomyolysis type: non-traumatic Qualified Code(s): M62.82 - Rhabdomyolysis (3) Pneumonia Status: Acute Qualifiers: Pneumonia type: due to unspecified organism Laterality: bilateral (4) Hyponatremia Status: Acute (5) Hypokalemia Status: Acute
[2021-04-08] MEDS ORDERED: HALDOL PO SCH (21:00)
[2021-04-08] MEDS: DETROL LA 2 MG CAP EXT REL PO SCH (21:35)
[2021-04-08] MEDS: COGENTIN TAB 1 MG PO SCH (21:36)
[2021-04-08] MEDS: ZOCOR TAB 10 MG PO SCH (21:37)
[2021-04-08] MEDS: DEPAKOTE D.R. TAB PO SCH (21:46)
[2021-04-09] MEDS: FORTAZ or TAZICEF VIAL INJ IVP SCH ×2 (05:00→14:51)
[2021-04-09] MEDS: NS 1000 ML 1,000 ML IV SCH ×3 (06:10→18:47)
--- NOTE | 2021-04-09 06:11 | RAD ---
HISTORYSOBSTUDYCHEST, 1 [id number]/24/2021FINDINGSFocal abnormal opacity in the right upper lung is pneumonia, better appreciated on the CT 04/07/2021. This has progressed since yesterday.No pleural effusion or pneumothorax. Elevation of the right hemidiaphragm is unchanged.Heart size is normal.Bones are unremarkable.IMPRESSION1. Progressed right lung pneumoniaElectronically signed by: Giovany Goss (Apr 09, 2021 06:09:01)
[2021-04-09 06:31] LABS: BASOPHILS % (AUTO) 0.8 % (0.2-1.0); EOSINOPHILS % (AUTO) 1.5 % (0.9-2.9); HEMATOCRIT 32.1 % (36.0-47.0); HEMOGLOBIN 11.1 g/dL (12.0-16.0); LYMPHOCYTES # (AUTO) 0.6 X10^3/uL (1.3-2.9); LYMPHOCYTES % (AUTO) 18.5 % (21.0-51.0); MEAN CORPUSCULAR HGB CONC 34.6 g/dL (33.0-35.0); MEAN CORPUSCULAR VOLUME 92.3 fL (80.0-100.0); MEAN PLATELET VOLUME 7.5 fL (7.4-11.0); MONOCYTES # (AUTO) 0.3 x10^3/uL (0.3-0.8); MONOCYTES % (AUTO) 10.1 % (0.0-13.0); NEUTROPHILS # (AUTO) 2.2 x10^3/uL (2.2-4.8); NEUTROPHILS % (AUTO) 69.1 % (42.0-75.0); PLATELET COUNT 166 X10^3/uL (150.0-450.0); RED BLOOD COUNT 3.47 X10^6/uL (3.5-5.4); RED CELL DISTRIBUTION WIDTH 15.7 % (11.6-16.5); WHITE BLOOD COUNT 3.1 X10^3/uL (3.6-10.0)
[2021-04-09 06:47] LABS: ALANINE AMINOTRANSFERASE 37 Units/L (12-78); ALBUMIN 1.8 g/dL (3.4-5.0); ALKALINE PHOSPHATASE 49 Units/L (46-116); ASPARTATE AMINO TRANSFERASE 57 Units/L (15-37); BLOOD UREA NITROGEN 12 mg/dL (7-18); CALCIUM 8.1 mg/dL (8.5-10.1); CARBON DIOXIDE 24.6 mmol/L (21-32); CHLORIDE 108 mmol/L (98-107); COR CA(FOR HYPOALB) 9.9 mg/dL (8.5-10.1); COR NA(FOR HYPERGLY) 142 mmol/L (136-145); CREATININE 0.66 mg/dL (0.55-1.02); SODIUM 141 mmol/L (136-145); TOTAL PROTEIN 5.1 g/dL (6.4-8.2); eGFR NON BLACK RACES > 60 (>60)
[2021-04-09 08:39] LABS: CKMB % 0.9 % (<4); CREATINE KINASE 401 Units/L (26-192); CREATINE KINASE MB 3.5 ng/mL (0-4.0); TROPONIN I < 0.02 ng/mL (0-1.5)
[2021-04-09] MEDS: PROTONIX INJ 40 MG VIAL IVP SCH ×2 (09:38→20:12)
[2021-04-09] MEDS: LEVAQUIN PREMIX IV 500 MG 500 MG/100 ML BAG IV SCH (09:38)
[2021-04-09] MEDS: MICRO K EXTEN CAP 10 MEQ PO SCH (09:38)
--- NOTE | 2021-04-09 15:58 | PCM.PROG ---
Progress Note - Progress Note for Day of Date of Exam: 04/09/21 - Subjective Subjective: IS A 60 YEAR OLD PATIENT OF . SHE IS BEING TREATED FOR HYPOKALEMIA, WEAKNESS, URINARY TRACT INFECTION, AND RHABDO. SHE DID HAVE COVID ABOUT A MONTH AND A HALF AGO. SHE HAS HAD SEVERE LOWER EXTREMITY WEAKNESS. TODAY, SHE IS ALERT AND ORIENTED, LYING IN BED ON MORNING ROUNDS. SHE CONTINUES WITH COMPLAINTS OF WEAKNESS. SHE ALSO REPORTS SHORTNESS OF BREATH AT TIMES. ON EXAMINATION, HEART IS REGULAR IN RATE AND RHYTHM. BILATERAL LUNGS ARE NOTED TO HAVE DIMINISHED LUNG SOUNDS THROUGHOUT. ABDOMEN IS ROUND, SOFT, AND NON-TENDER WITH NORMAL BOWEL SOUNDS NOTED IN ALL QUADRANTS. HER VITALS THIS MORNING ARE: 97.9-100-20-97%-131/75. LABS WERE OBTAINED. ABNORMAL LAB VALUES INCLUDE THE FOLLOWING: WBC 3.1, RBC 3.47, HGB 11.1, HCT 32.1, CHLORIDE 108, GLUCOSE 130, CALCIUM 8.1, AST 57, CREATINE KINASE 401, TOTAL PROTEIN 5.1, ALBUMIN 1.8. URINE CULTURE IS PENDING. A CHEST XRAY WAS OBTAINED AND REVEALED: PROGRESSED RIGHT LUNG PNEUMONIA. SHE IS CURRENTLY RECEIVING NS AT 80 ML/HR, FORTAZ 1G IV Q8H, LEVAQUIN 500MG IV DAILY, PROTONIX 40MG IV BID, COLACE 100MG PO HS, NORCO 5/325MG PO Q8H PRN, AND HER HOME MEDICATIONS WERE RESUMED. WE WILL CONTINUE WITH CURRENT PLAN OF CARE TODAY. OTHERWISE, WE WILL FOLLOW UP WITH AM LABS AND CONTINUE TO MONITOR. TIME SPENT ON CLINICAL ASSESSMENT, REVIEWING LABS AND IMAGING, DECISION MAKING, AND DOCUMENTATION GREATER THAN 45 MINUTES. - Past Medical Family Social History Past Med/Fam/Surg Hx: No changes since H&P Allergies: Allergies aspirin Allergy (Verified 05/22/19 15:15) - Review of Systems ROS: No change since H&P - Vital Signs and I&O's Vital Signs: Temperature 97.1 F Pulse Rate [Left Brachial] 108 Respiratory Rate 20 Blood Pressure [Left Arm] 151/73 Blood Pressure [Right Arm] 121/66 Blood Pressure 134/87 O2 Sat by Pulse Oximetry 94 Intake and Output: Intake & Output 04/07/21 04/08/21 04/09/21 04/10/21 11:59 11:59 11:59 11:59 Intake Total 1073 / 1073 2875 / 2875 Output Total Balance 1072 / 1072 2875 / 2875 - Physical Exam Oriented: Normal Eyes: Normal Ear: Normal Nose: Normal Throat: Normal Respiratory: Generalized, Diminished Cardiovascular: Edema (BLE 1+ PITTING EDEMA ) : Normal Auscultation: Bowel Sounds: Normal Tenderness: Normal Skin: Decreased Turgur Musculoskeletal: Right, Left, Leg, Back:Lumbar, Tender Psychiatric: Anxiety Affect: Normal Speech Pattern: Clear, Appropriate - Laboratory and Diagnostics Result Diagrams: 04/09/21 05:34 04/09/21 05:34 Labs: 04/07/21 15:55 Urine,Catheterized Urine Culture - Final Enterococcus Faecalis Laboratory WBC 3.1 X10^3/uL (3.6-10.0) L 04/09/21 05:34 RBC 3.47 X10^6/uL (3.5-5.4) L 04/09/21 05:34 Hgb 11.1 g/dL (12.0-16.0) L 04/09/21 05:34 Hct 32.1 % (36.0-47.0) L 04/09/21 05:34 MCV 92.3 fL (80.0-100.0) 04/09/21 05:34 MCH 32.0 pg (27.0-34.0) 04/09/21 05:34 MCHC 34.6 g/dL (33.0-35.0) 04/09/21 05:34 RDW 15.7 % (11.6-16.5) 04/09/21 05:34 Plt Count 166 X10^3/uL (150.0-450.0) 04/09/21 05:34 MPV 7.5 fL (7.4-11.0) 04/09/21 05:34 Neut % (Auto) 69.1 % (42.0-75.0) 04/09/21 05:34 Lymph % (Auto) 18.5 % (21.0-51.0) L 04/09/21 05:34 [place] % (Auto) 10.1 % (0.0-13.0) 04/09/21 05:34 Eos % (Auto) 1.5 % (0.9-2.9) 04/09/21 05:34 Baso % (Auto) 0.8 % (0.2-1.0) 04/09/21 05:34 Neut # (Auto) 2.2 x10^3/uL (2.2-4.8) 04/09/21 05:34 Lymph # (Auto) 0.6 X10^3/uL (1.3-2.9) L 04/09/21 05:34 [place] # (Auto) 0.3 x10^3/uL (0.3-0.8) 04/09/21 05:34 Eos # (Auto) 0.0 x10^3/uL (0.0-0.2) 04/09/21 05:34 Baso # (Auto) 0.0 X10^3/uL (0.0-0.1) 04/09/21 05:34 Absolute Nucleated RBC 0.1 /100WBC 04/09/21 05:34 D-Dimer 1.29 ug/ml (0.0-0.57) H* 04/07/21 13:20 Sodium 141 mmol/L (136-145) 04/09/21 05:34 Corrected Sodium 142 mmol/L (136-145) 04/09/21 05:34 Potassium 3.5 mmol/L (3.5-5.1) 04/09/21 05:34 Chloride 108 mmol/L (98-107) H 04/09/21 05:34 Carbon Dioxide 24.6 mmol/L (21-32) 04/09/21 05:34 BUN 12 mg/dL (7-18) 04/09/21 05:34 Creatinine 0.66 mg/dL (0.55-1.02) 04/09/21 05:34 Est GFR (MDRD) Af Amer > 60 (>60) 04/09/21 05:34 Est GFR (MDRD) Non-Af > 60 (>60) 04/09/21 05:34 Glucose 130 mg/dL (65-99) H 04/09/21 05:34 Calcium 8.1 mg/dL (8.5-10.1) L 04/09/21 05:34 Corrected Calcium 9.9 mg/dL (8.5-10.1) 04/09/21 05:34 Magnesium 2.0 mg/dL (1.7-2.9) 04/07/21 13:20 Total Bilirubin 0.60 mg/dL (0.2-1.0) 04/09/21 05:34 AST 57 Units/L (15-37) H 04/09/21 05:34 ALT 37 Units/L (12-78) 04/09/21 05:34 Alkaline Phosphatase 49 Units/L (46-116) 04/09/21 05:34 Creatine Kinase 401 Units/L (26-192) H 04/09/21 05:34 CK-MB (CK-2) 3.5 ng/mL (0-4.0) 04/09/21 05:34 CK/CKMB % Calc 0.9 % (<4) 04/09/21 05:34 Troponin I < 0.02 ng/mL (0-1.5) 04/09/21 05:34 Total Protein 5.1 g/dL (6.4-8.2) L 04/09/21 05:34 Albumin 1.8 g/dL (3.4-5.0) L 04/09/21 05:34 Globulin 3.3 g/dL (2.5-4.5) 04/09/21 05:34 Albumin/Globulin Ratio 0.5 Ratio (1.1-2.1) L 04/09/21 05:34 Specimen Type Catherized urine 04/07/21 15:55 Urine Color Yellow (YELLOW) 04/07/21 15:55 Urine Appearance Slightly hazy (CLEAR) 04/07/21 15:55 Urine pH 6.0 (5.0 - 8.0) 04/07/21 15:55 Ur Specific [place] 1.010 (1.000-1.030) 04/07/21 15:55 Urine Protein 1+ (NEGATIVE) 04/07/21 15:55 Urine Glucose (UA) Negative (NEGATIVE) 04/07/21 15:55 Urine Ketones Negative (NEGATIVE) 04/07/21 15:55 Urine Occult Blood 1+ (NEGATIVE) 04/07/21 15:55 Urine Nitrite Negative (NEGATIVE) 04/07/21 15:55 Urine Bilirubin Negative (NEGATIVE) 04/07/21 15:55 Urine Urobilinogen 1+ (NORMAL) 04/07/21 15:55 Ur Leukocyte Esterase 1+ (NEGATIVE) 04/07/21 15:55 Urine RBC 3-5 /HPF (0-3) A 04/07/21 15:55 Urine WBC 3-5 /HPF (0-5) 04/07/21 15:55 Ur Squamous Epith Cells Moderate /HPF (NEGATIVE) 04/07/21 15:55 Urine Bacteria Trace /HPF (NEGATIVE) 04/07/21 15:55 Urine Mucus Few /HPF (NEGATIVE) 04/07/21 15:55 Ur Culture Indicated? No/not indicated 04/07/21 15:55 SARS-CoV-2 (PCR) Negative (NEGATIVE) 04/07/21 11:26 Influenza Type A (PCR) Negative (NEGATIVE) 04/07/21 11:26 Influenza Type B (PCR) Negative (NEGATIVE) 04/07/21 11:26 RSV (PCR) Negative (NEGATIVE) 04/07/21 11:26 - Plan (1) UTI (urinary tract infection) Status: Acute Qualifiers: Urinary tract infection type: acute cystitis Hematuria presence: with hematuria Qualified Code(s): N30.01 - Acute cystitis with hematuria (2) Rhabdomyolysis Status: Acute Qualifiers: Rhabdomyolysis type: non-traumatic Qualified Code(s): M62.82 - Rhabdomyolysis (3) Pneumonia Status: Acute Qualifiers: Pneumonia type: due to unspecified organism Laterality: bilateral (4) Hyponatremia Status: Acute (5) Hypokalemia Status: Acute
[2021-04-09] MEDS: MACROBID CAP 100 MG EXT REL PO SCH ×2 (16:51→20:12)
[2021-04-09] MEDS: COLACE CAP 100 MG PO SCH (20:11)
[2021-04-09] MEDS: ZOCOR TAB 10 MG PO SCH (20:11)
[2021-04-09] MEDS: DETROL LA 2 MG CAP EXT REL PO SCH (20:12)
[2021-04-09] MEDS: FORTAZ or TAZICEF VIAL INJ 1 G in NS 100 ML IV 100 ML IV SCH (21:16)
[2021-04-10] MEDS: FORTAZ or TAZICEF VIAL INJ 1 G in NS 100 ML IV 100 ML IV SCH ×3 (05:13→21:15)
--- NOTE | 2021-04-10 06:09 | RAD ---
HISTORYSOB HX: HTN, ASTHMA SX: GBSTUDYCHEST, 1 [id number]/26/2021FINDINGSThe trachea is midline. The cardiac silhouette is unremarkable. Mild increased opacity within the right upper lobe again noted. The right hemidiaphragm is mildly elevated. The bony thorax is unremarkable.IMPRESSIONMild right lung infiltrate.No significant change from 04/09/2021lectronically signed by: Surjit Maher (Apr 10, 2021 06:08:09)
[2021-04-10 06:27] LABS: BASOPHILS % (AUTO) 0.7 % (0.2-1.0); EOSINOPHILS # (AUTO) 0.1 x10^3/uL (0.0-0.2); EOSINOPHILS % (AUTO) 2.1 % (0.9-2.9); HEMATOCRIT 33.1 % (36.0-47.0); HEMOGLOBIN 11.3 g/dL (12.0-16.0); LYMPHOCYTES # (AUTO) 0.6 X10^3/uL (1.3-2.9); MEAN CORPUSCULAR HEMOGLOBIN 31.5 pg (27.0-34.0); MEAN CORPUSCULAR HGB CONC 34.1 g/dL (33.0-35.0); MEAN CORPUSCULAR VOLUME 92.5 fL (80.0-100.0); MEAN PLATELET VOLUME 7.2 fL (7.4-11.0); MONOCYTES # (AUTO) 0.3 x10^3/uL (0.3-0.8); MONOCYTES % (AUTO) 9.7 % (0.0-13.0); NEUTROPHILS # (AUTO) 2.4 x10^3/uL (2.2-4.8); NEUTROPHILS % (AUTO) 70.5 % (42.0-75.0); PLATELET COUNT 174 X10^3/uL (150.0-450.0); RED BLOOD COUNT 3.58 X10^6/uL (3.5-5.4); RED CELL DISTRIBUTION WIDTH 15.8 % (11.6-16.5); WHITE BLOOD COUNT 3.3 X10^3/uL (3.6-10.0)
[2021-04-10 06:53] LABS: ALANINE AMINOTRANSFERASE 36 Units/L (12-78); ALBUMIN 1.9 g/dL (3.4-5.0); ALKALINE PHOSPHATASE 47 Units/L (46-116); ASPARTATE AMINO TRANSFERASE 65 Units/L (15-37); BLOOD UREA NITROGEN 11 mg/dL (7-18); CALCIUM 8.3 mg/dL (8.5-10.1); CHLORIDE 107 mmol/L (98-107); CREATININE 0.62 mg/dL (0.55-1.02); SODIUM 140 mmol/L (136-145); TOTAL PROTEIN 5.3 g/dL (6.4-8.2); eGFR NON BLACK RACES > 60 (>60)
[2021-04-10] MEDS: NS 1000 ML 1,000 ML IV SCH (08:24)
[2021-04-10] MEDS: PROTONIX INJ 40 MG VIAL IVP SCH ×2 (08:24→21:15)
[2021-04-10] MEDS: MACROBID CAP 100 MG EXT REL PO SCH ×2 (08:24→21:15)
[2021-04-10] MEDS: MICRO K EXTEN CAP 10 MEQ PO SCH (08:25)
[2021-04-10] MEDS: ROBITUSSIN DM PO SCH ×4 (10:45→21:15)
[2021-04-10] MEDS: DUONEB 0.5 MG/3 MG (3 mL) NEB SCH ×4 (14:20→21:27)
[2021-04-10] MEDS: ZESTRIL TAB 5 MG PO SCH (16:36)
[2021-04-10] MEDS: COLACE CAP 100 MG PO SCH (21:15)
[2021-04-10] MEDS: ZOCOR TAB 10 MG PO SCH (21:15)
[2021-04-10] MEDS: DETROL LA 2 MG CAP EXT REL PO SCH (21:15)
[2021-04-11] MEDS: NS 1000 ML 1,000 ML IV SCH ×3 (00:32→18:29)
--- NOTE | 2021-04-11 06:22 | RAD ---
HISTORYSOBSTUDYCHEST, 1 VIEWCOMPARISONOne day prior.TECHNIQUEAP view of the chestFINDINGSCardiac and mediastinal contours are within normal limits. No significant change in mild bilateral scattered hazy pulmonary opacities. No definite pleural effusion or pneumothorax. Soft tissue attenuation limits evaluation.IMPRESSIONNo significant change.Electronically signed by: Kasi Abarca (Apr 11, 2021 06:19:27)
[2021-04-11 06:41] LABS: BASOPHILS % (AUTO) 0.7 % (0.2-1.0); EOSINOPHILS # (AUTO) 0.1 x10^3/uL (0.0-0.2); EOSINOPHILS % (AUTO) 2.6 % (0.9-2.9); HEMATOCRIT 33.8 % (36.0-47.0); HEMOGLOBIN 11.5 g/dL (12.0-16.0); LYMPHOCYTES # (AUTO) 0.5 X10^3/uL (1.3-2.9); LYMPHOCYTES % (AUTO) 14.4 % (21.0-51.0); MEAN CORPUSCULAR HEMOGLOBIN 31.5 pg (27.0-34.0); MEAN CORPUSCULAR VOLUME 92.7 fL (80.0-100.0); MEAN PLATELET VOLUME 7.3 fL (7.4-11.0); MONOCYTES # (AUTO) 0.4 x10^3/uL (0.3-0.8); MONOCYTES % (AUTO) 9.5 % (0.0-13.0); NEUTROPHILS # (AUTO) 2.7 x10^3/uL (2.2-4.8); NEUTROPHILS % (AUTO) 72.8 % (42.0-75.0); PLATELET COUNT 179 X10^3/uL (150.0-450.0); RED BLOOD COUNT 3.65 X10^6/uL (3.5-5.4); RED CELL DISTRIBUTION WIDTH 15.9 % (11.6-16.5); WHITE BLOOD COUNT 3.8 X10^3/uL (3.6-10.0)
[2021-04-11] MEDS: FORTAZ or TAZICEF VIAL INJ 1 G in NS 100 ML IV 100 ML IV SCH ×3 (06:45→21:08)
[2021-04-11 06:51] LABS: ALANINE AMINOTRANSFERASE 41 Units/L (12-78); ALKALINE PHOSPHATASE 43 Units/L (46-116); ASPARTATE AMINO TRANSFERASE 67 Units/L (15-37); BLOOD UREA NITROGEN 11 mg/dL (7-18); CALCIUM 8.4 mg/dL (8.5-10.1); CARBON DIOXIDE 25.3 mmol/L (21-32); CHLORIDE 106 mmol/L (98-107); SODIUM 138 mmol/L (136-145); TOTAL PROTEIN 5.3 g/dL (6.4-8.2); eGFR NON BLACK RACES > 60 (>60)
[2021-04-11] MEDS: MACROBID CAP 100 MG EXT REL PO SCH ×2 (08:22→21:08)
[2021-04-11] MEDS: ZESTRIL TAB 5 MG PO SCH (08:23)
[2021-04-11] MEDS: MICRO K EXTEN CAP 10 MEQ PO SCH (08:23)
[2021-04-11] MEDS: PROTONIX INJ 40 MG VIAL IVP SCH ×2 (08:23→21:08)
[2021-04-11] MEDS: ROBITUSSIN DM PO SCH ×4 (08:23→21:08)
[2021-04-11] MEDS: DUONEB 0.5 MG/3 MG (3 mL) NEB SCH ×4 (09:20→20:50)
[2021-04-11] MEDS ORDERED: PHARMACY CONSULT - LOVENOX XX SCH (10:00)
[2021-04-11 10:31] LABS: CKMB % 1.3 % (<4); CREATINE KINASE 348 Units/L (26-192); TROPONIN I < 0.02 ng/mL (0-1.5)
[2021-04-11 10:35] LABS: CREATINE KINASE MB 4.4 ng/mL (0-4.0)
[2021-04-11] MEDS: LOVENOX INJ 40 MG SYR SC SCH (12:00)
[2021-04-11] MEDS: COLACE CAP 100 MG PO SCH (21:07)
[2021-04-11] MEDS: COGENTIN TAB 1 MG PO SCH (21:07)
[2021-04-11] MEDS: HALDOL PO SCH (21:07)
[2021-04-11] MEDS: DEPAKOTE D.R. TAB PO SCH (21:07)
[2021-04-11] MEDS: DETROL LA 2 MG CAP EXT REL PO SCH (21:07)
[2021-04-11] MEDS: ZOCOR TAB 10 MG PO SCH (21:08)
[2021-04-12] MEDS: NS 1000 ML 1,000 ML IV SCH ×3 (04:54→10:59)
[2021-04-12] MEDS: FORTAZ or TAZICEF VIAL INJ 1 G in NS 100 ML IV 100 ML IV SCH ×3 (05:00→21:09)
--- NOTE | 2021-04-12 06:00 | RAD ---
HISTORYSOB HX: HTN, ASTHMA SX: GBSTUDYCHEST, 1 [id number]/28/2021FINDINGSThe trachea is midline. The cardiac silhouette is unremarkable. Mild bilateral scattered pulmonary opacities. There is persistent elevation of the right hemidiaphragm. No pneumothorax. The bony thorax is unremarkable.IMPRESSIONStable portable chestElectronically signed by: Surjit Maher (Apr 12, 2021 05:57:59)
[2021-04-12 06:35] LABS: BASOPHILS % (AUTO) 0.6 % (0.2-1.0); EOSINOPHILS # (AUTO) 0.1 x10^3/uL (0.0-0.2); EOSINOPHILS % (AUTO) 2.4 % (0.9-2.9); HEMATOCRIT 33.6 % (36.0-47.0); HEMOGLOBIN 11.4 g/dL (12.0-16.0); LYMPHOCYTES # (AUTO) 0.6 X10^3/uL (1.3-2.9); LYMPHOCYTES % (AUTO) 16.7 % (21.0-51.0); MEAN CORPUSCULAR HEMOGLOBIN 31.1 pg (27.0-34.0); MEAN CORPUSCULAR HGB CONC 33.8 g/dL (33.0-35.0); MEAN CORPUSCULAR VOLUME 91.8 fL (80.0-100.0); MEAN PLATELET VOLUME 7.2 fL (7.4-11.0); MONOCYTES # (AUTO) 0.4 x10^3/uL (0.3-0.8); MONOCYTES % (AUTO) 11.4 % (0.0-13.0); NEUTROPHILS # (AUTO) 2.6 x10^3/uL (2.2-4.8); NEUTROPHILS % (AUTO) 68.9 % (42.0-75.0); PLATELET COUNT 201 X10^3/uL (150.0-450.0); RED BLOOD COUNT 3.66 X10^6/uL (3.5-5.4); RED CELL DISTRIBUTION WIDTH 16.1 % (11.6-16.5); WHITE BLOOD COUNT 3.7 X10^3/uL (3.6-10.0)
[2021-04-12 06:55] LABS: ALANINE AMINOTRANSFERASE 41 Units/L (12-78); ALKALINE PHOSPHATASE 45 Units/L (46-116); ASPARTATE AMINO TRANSFERASE 59 Units/L (15-37); BLOOD UREA NITROGEN 14 mg/dL (7-18); CALCIUM 8.5 mg/dL (8.5-10.1); CARBON DIOXIDE 27.1 mmol/L (21-32); CHLORIDE 105 mmol/L (98-107); COR CA(FOR HYPOALB) 10.1 mg/dL (8.5-10.1); SODIUM 138 mmol/L (136-145); TOTAL PROTEIN 5.5 g/dL (6.4-8.2); eGFR NON BLACK RACES > 60 (>60)
[2021-04-12] MEDS: MICRO K EXTEN CAP 10 MEQ PO SCH (08:30)
[2021-04-12] MEDS: PROTONIX INJ 40 MG VIAL IVP SCH ×2 (08:30→20:54)
[2021-04-12] MEDS: LOVENOX INJ 40 MG SYR SC SCH (08:30)
[2021-04-12] MEDS: MACROBID CAP 100 MG EXT REL PO SCH ×2 (08:30→20:54)
[2021-04-12] MEDS: ROBITUSSIN DM PO SCH ×4 (08:31→20:54)
[2021-04-12] MEDS: ZESTRIL TAB 5 MG PO SCH (08:31)
[2021-04-12] MEDS: HALDOL PO SCH (08:32)
[2021-04-12] MEDS ORDERED: K-DUR TAB 20 MEQ PO SCH (09:00)
[2021-04-12] MEDS ORDERED: LASIX IVP SCH (09:00)
[2021-04-12] MEDS: DUONEB 0.5 MG/3 MG (3 mL) NEB SCH ×4 (09:34→20:38)
[2021-04-12] MEDS: COLACE CAP 100 MG PO SCH (20:53)
[2021-04-12] MEDS: DETROL LA 2 MG CAP EXT REL PO SCH (20:53)
[2021-04-12] MEDS: ZOCOR TAB 10 MG PO SCH (20:55)
[2021-04-13] MEDS: FORTAZ or TAZICEF VIAL INJ 1 G in NS 100 ML IV 100 ML IV SCH ×3 (05:07→21:03)
[2021-04-13 06:16] LABS: ALANINE AMINOTRANSFERASE 41 Units/L (12-78); ALKALINE PHOSPHATASE 45 Units/L (46-116); ASPARTATE AMINO TRANSFERASE 57 Units/L (15-37); BLOOD UREA NITROGEN 14 mg/dL (7-18); CALCIUM 8.5 mg/dL (8.5-10.1); CARBON DIOXIDE 29.5 mmol/L (21-32); CHLORIDE 106 mmol/L (98-107); COR CA(FOR HYPOALB) 10.1 mg/dL (8.5-10.1); CREATININE 0.55 mg/dL (0.55-1.02); SODIUM 139 mmol/L (136-145); TOTAL PROTEIN 5.5 g/dL (6.4-8.2); eGFR NON BLACK RACES > 60 (>60)
[2021-04-13 06:19] LABS: BASOPHILS % (AUTO) 0.7 % (0.2-1.0); EOSINOPHILS # (AUTO) 0.1 x10^3/uL (0.0-0.2); EOSINOPHILS % (AUTO) 2.2 % (0.9-2.9); HEMATOCRIT 33.5 % (36.0-47.0); HEMOGLOBIN 11.5 g/dL (12.0-16.0); LYMPHOCYTES # (AUTO) 0.6 X10^3/uL (1.3-2.9); LYMPHOCYTES % (AUTO) 16.3 % (21.0-51.0); MEAN CORPUSCULAR HEMOGLOBIN 31.8 pg (27.0-34.0); MEAN CORPUSCULAR HGB CONC 34.3 g/dL (33.0-35.0); MEAN CORPUSCULAR VOLUME 92.6 fL (80.0-100.0); MEAN PLATELET VOLUME 7.1 fL (7.4-11.0); MONOCYTES # (AUTO) 0.4 x10^3/uL (0.3-0.8); MONOCYTES % (AUTO) 11.1 % (0.0-13.0); NEUTROPHILS # (AUTO) 2.5 x10^3/uL (2.2-4.8); NEUTROPHILS % (AUTO) 69.7 % (42.0-75.0); PLATELET COUNT 203 X10^3/uL (150.0-450.0); RED BLOOD COUNT 3.61 X10^6/uL (3.5-5.4); WHITE BLOOD COUNT 3.5 X10^3/uL (3.6-10.0)
[2021-04-13] MEDS: DUONEB 0.5 MG/3 MG (3 mL) NEB SCH ×4 (08:10→20:15)
[2021-04-13] MEDS: PROTONIX INJ 40 MG VIAL IVP SCH ×2 (09:00→21:02)
[2021-04-13] MEDS: LOVENOX INJ 40 MG SYR SC SCH (09:00)
[2021-04-13] MEDS: MACROBID CAP 100 MG EXT REL PO SCH ×2 (09:20→21:00)
[2021-04-13] MEDS: ROBITUSSIN DM PO SCH ×4 (09:21→21:01)
[2021-04-13] MEDS: MICRO K EXTEN CAP 10 MEQ PO SCH (09:21)
[2021-04-13] MEDS: ZESTRIL TAB 5 MG PO SCH (09:21)
--- NOTE | 2021-04-13 12:35 | RAD ---
HISTORYSOB HX: HTN, ASTHMA SX: GBSTUDYCHEST, 1 VIEWCOMPARISONPortable chest April 12, 2021FINDINGSThe trachea is midline. The cardiac silhouette is unremarkable. There is chronic elevation right hemidiaphragm. The lungs are stable with improvement in the interstitial opacity in the left lung base and stable interstitial process in the right upper lobe when compared to yesterday's exam. There is no effusion adenopathy. The bony thorax is unremarkable.IMPRESSION [ ]Clearing of the interstitial process left lower lobe stable interstitial process right upper lobeElectronically signed by: JONNY JOHNSON (Apr 13, 2021 08:03:25)
[2021-04-13] MEDS: NS 1000 ML 1,000 ML IV SCH ×3 (18:40→23:59)
[2021-04-13] MEDS: DETROL LA 2 MG CAP EXT REL PO SCH (21:00)
[2021-04-13] MEDS: ZOCOR TAB 10 MG PO SCH (21:00)
[2021-04-13] MEDS: COLACE CAP 100 MG PO SCH (21:00)
[2021-04-14] MEDS: FORTAZ or TAZICEF VIAL INJ 1 G in NS 100 ML IV 100 ML IV SCH (05:02)
[2021-04-14 06:14] LABS: BASOPHILS % (AUTO) 0.9 % (0.2-1.0); EOSINOPHILS # (AUTO) 0.1 x10^3/uL (0.0-0.2); EOSINOPHILS % (AUTO) 2.4 % (0.9-2.9); HEMATOCRIT 33.2 % (36.0-47.0); HEMOGLOBIN 11.2 g/dL (12.0-16.0); LYMPHOCYTES # (AUTO) 0.6 X10^3/uL (1.3-2.9); LYMPHOCYTES % (AUTO) 16.6 % (21.0-51.0); MEAN CORPUSCULAR HEMOGLOBIN 31.4 pg (27.0-34.0); MEAN CORPUSCULAR HGB CONC 33.7 g/dL (33.0-35.0); MEAN CORPUSCULAR VOLUME 93.2 fL (80.0-100.0); MEAN PLATELET VOLUME 7.5 fL (7.4-11.0); MONOCYTES # (AUTO) 0.4 x10^3/uL (0.3-0.8); MONOCYTES % (AUTO) 11.8 % (0.0-13.0); NEUTROPHILS # (AUTO) 2.5 x10^3/uL (2.2-4.8); NEUTROPHILS % (AUTO) 68.3 % (42.0-75.0); PLATELET COUNT 176 X10^3/uL (150.0-450.0); RED BLOOD COUNT 3.56 X10^6/uL (3.5-5.4); WHITE BLOOD COUNT 3.7 X10^3/uL (3.6-10.0)
[2021-04-14 06:33] LABS: ALANINE AMINOTRANSFERASE 47 Units/L (12-78); ALBUMIN 2.1 g/dL (3.4-5.0); ALKALINE PHOSPHATASE 43 Units/L (46-116); ASPARTATE AMINO TRANSFERASE 60 Units/L (15-37); BLOOD UREA NITROGEN 12 mg/dL (7-18); CALCIUM 8.5 mg/dL (8.5-10.1); CARBON DIOXIDE 28.3 mmol/L (21-32); CHLORIDE 107 mmol/L (98-107); CREATININE 0.53 mg/dL (0.55-1.02); SODIUM 139 mmol/L (136-145); TOTAL PROTEIN 5.4 g/dL (6.4-8.2); eGFR NON BLACK RACES > 60 (>60)
[2021-04-14] MEDS: DUONEB 0.5 MG/3 MG (3 mL) NEB SCH (09:25)
[2021-04-14] MEDS: MICRO K EXTEN CAP 10 MEQ PO SCH (10:32)
[2021-04-14] MEDS: LOVENOX INJ 40 MG SYR SC SCH (10:32)
[2021-04-14] MEDS: MACROBID CAP 100 MG EXT REL PO SCH (10:32)
[2021-04-14] MEDS: PROTONIX INJ 40 MG VIAL IVP SCH (10:33)
[2021-04-14] MEDS: ZESTRIL TAB 5 MG PO SCH (10:33)
[2021-04-14] MEDS: ROBITUSSIN DM PO SCH (10:33)
[2021-04-14 12:06] VITALS: BP 127/81
--- NOTE | 2021-04-14 13:12 | MRI ---
HISTORYONE SIDED WEAKNESSSTUDYBRAIN W/O CONCOMPARISONNoneTECHNIQUEMultiplanar multi sequences images through the brain were performed without contrast.FINDINGSThe ventricles are normal in size and symmetricThere is no evidence of an acute infarct, there are no focal areas of restricted diffusion.The main arterial and venous flow voids are present. There is no abnormal signal in the mastoid cells and included paranasal sinuses. No orbital masses.There is normal midline anatomy. No sellar masses. The cervicocranial junction is unremarkable. No nasopharyngeal masses.There is no abnormal intraparenchymal susceptibility artifact. FLAIR images demonstrate diffuse high signal in the lia including at the medial leminscus. There is mild periventricular and few scattered areas of high signal in the subcortical white matter, no abnormal signal in the middle cerebellar peduncles.IMPRESSIONPeriventricular and few scattered areas of high signal in the subcortical white matter including diffuse high signal in the lia more likely associated with small vessel disease as hypertension on diabetes less likely demyelinization.No acute infarcts.Electronically signed by: Yokasta Haque (Apr 14, 2021 13:09:34)
== END 2021-04-14 11:55 | DRG 194 ==
LOC: OBS → MED/SURG 12:18
PROVIDERS: ADMIT Internal Medicine; ATTEND Internal Medicine
DX: E87.6 Hypokalemia; R60.0 Localized edema; E87.1 Hypo-osmolality and hyponatremia; U09.9 Post COVID-19 condition, unspecified; N30.01 Acute cystitis with hematuria; R03.0 Elevated blood-pressure reading, without diagnosis of hypertension; E86.0 Dehydration; R53.1 Weakness; R06.02 Shortness of breath; B95.2 Enterococcus as the cause of diseases classified elsewhere; M62.82 Rhabdomyolysis; J18.8 Other pneumonia, unspecified organism; R62.7 Adult failure to thrive